=== PATIENT | male | born 1945 | race Caucasian/White ===

== ENCOUNTER → 2018-09-30 | Outpatient (CLI) | payer MEDICARE ==
--- NOTE | 2018-09-30 15:55 | US ---
EXAMINATION TYPE: US kidneys/renal and bladder DATE OF EXAM: 09/30/2018 COMPARISON: NONE CLINICAL HISTORY: N28.89 other diseases of kidney ureters. Pt states MRI done at outside facility s howing renal lesions bilaterally EXAM MEASUREMENTS: Right Kidney: 11.8 x 5.4 x 4.8 cm Left Kidney: 9.8 x 5.3 x 5.5 cm Right Kidney: Multicystic with largest cyst measured lower pole= 3.7 x 2.8 x 3.8 cm Left Kidney: Multicystic with largest cyst measured at lower pole= 5.0 x 3.1 x 4.6 cm Bladder: wnl Bilateral Jets seen: Only left jet visualized Incidental finding of "bulging" to distal aorta with soft plaque= 2.8 cm There is no evidence for hydronephrosis at this point in time. No nephrolithiasis is seen. . The u rinary bladder is greatly distended. Bilateral ureteral jets are not seen. IMPRESSION: Multiple thin-walled cysts are scattered throughout both kidneys presumed to correlate to outside MRI abnormality. Ectasia of the abdominal aorta without greater than 3.0 cm aneurysmal decker e
== END | disposition home or self-care (01) ==
LOC: RADUSWWP 15:27
PROVIDERS: ATTEND Family Medicine
DX: N28.1 Cyst of kidney, acquired (principal); I71.4 Abdominal aortic aneurysm, without rupture
CPT/HCPCS: 76770

== ENCOUNTER 2018-11-24 05:12 | Inpatient (IN) | payer MEDICARE ==
[2018-11-24 05:35] LABS: HCT 37.7 % (39.0-53.0); HGB 12.6 gm/dL (13.0-17.5); MCH 32.6 pg (25.0-35.0); MCHC 33.4 g/dL (31.0-37.0); MCV 97.6 fL (80.0-100.0); Platelet Count 393 k/uL (150-450); RBC 3.87 m/uL (4.30-5.90); RDW 14.2 % (11.5-15.5); WBC 24.1 k/uL (3.8-10.6)
[2018-11-24] MEDS ORDERED: SODIUM CHLORIDE 0.9% 500 ML 500 ML IV STA ×3 (05:39→07:19)
[2018-11-24 05:45] LABS: INR 0.9 (<1.2); Partial Thromboplastin Time 24.3 sec (22.0-30.0); Prothrombin Time 9.7 sec (9.0-12.0)
--- NOTE | 2018-11-24 05:48 | ED ---
Back Pain HPI - General Source: patient, family, EMS Limitations: physical limitation - History of Present Illness MD Complaint: back pain, other -: days(s) Similar Symptoms Previously: No Place: home Radiation: left leg, right leg Severity: severe Quality: burning Consistency: constant Improves With: none Worsens With: none Associated Symptoms: denies other symptoms (This patient is a 73-year-old man wh o presents with complaint of back and bilateral foot pain. The patient states that he had a discectomy and replacement approximately 2 weeks ago at [facility] with Dr. Rubio. he states that he was doing well at approximately 3 days after the surgery stopped using the pain medication.) <Adonis Ward - Last Filed: 11/24/18 05:48> <Mic Corley - Last Filed: 11/24/18 11:54> - General Chief Complaint: Back Pain/Injury Stated Complaint: back pain Time Seen by Provider: 11/24/18 05:21 - History of Present Illness Initial Comments: This patient is a 73-year-old man who presents with complaint of back and bilateral foot pain. The patient states that he had a discectomy and replacement approximately 2 weeks ago at [facility] with Dr. Rubio. he states that he was doing well at approximately 3 days after the surgery stopped using the pain medication. About 4 days ago the patient noticed that he was having some burning bilateral foot pain. He states the worse after he was up and walking. It would improve after he was sitting and resting. He also had a little bit of low back pain. The patient states that he saw his primary physician who had some lab tests sent. He then received a call that he should be seen in the emergency department as his white blood count was high. The patient is denying fever or chills. No cough or dyspnea. No nausea, vomiting, or diarrhea. Denies change in urination. (Adonis Ward) Review of Systems ROS Other: All systems not noted in ROS Statement are negative. Constitutional: Reports: weakness ENT: Denies: throat pain Respiratory: Denies: cough, dyspnea Cardiovascular: Reports: edema. Denies: chest pain, palpitations, syncope Gastrointestinal: Denies: abdominal pain, nausea, vomiting, diarrhea Genitourinary: Denies: dysuria, hematuria Musculoskeletal: Reports: as per HPI, back pain Skin: Denies: rash, lesions Neurological: Denies: headache, weakness, numbness <Adonis Ward - Last Filed: 11/24/18 05:48> ROS Other: All systems not noted in ROS Statement are negative. <Mic Corley - Last Filed: 11/24/18 11:54> ROS Statement: Those systems with pertinent positive or pertinent negative responses have been documented in the HPI. Past Medical History Past Medical History: Asthma, Hyperlipidemia, Hypertension Additional Past Medical History / Comment(s): aortic aneurysm, back problems, cyst on kidney History of Any Multi-Drug Resistant Organisms: None Reported Past Surgical History: Back Surgery, Cholecystectomy, Orthopedic Surgery, Tonsillectomy Past Psychological History: No Psychological Hx Reported Smoking Status: Current every day smoker Past Alcohol Use History: Rare Past Drug Use History: None Reported <Adonis Ward - Last Filed: 11/24/18 05:48> General Exam Limitations: physical limitation General appearance: alert, in no apparent distress Head exam: Present: atraumatic, normocephalic Eye exam: Present: normal appearance. Absent: scleral icterus, conjunctival injection ENT exam: Present: mucous membranes dry Neck exam: Present: normal inspection, full ROM. Absent: tenderness Respiratory exam: Present: normal lung sounds bilaterally. Absent: respiratory distress, wheezes, rales, rhonchi, stridor Cardiovascular Exam: Present: normal rhythm, tachycardia (Rate approximately 112 bpm), normal heart sounds. Absent: systolic murmur, diastolic murmur, rubs, gallop GI/Abdominal exam: Present: soft. Absent: distended, tenderness, guarding, rebound, rigid, mass, pulsatile mass, hernia Extremities exam: Present: normal inspection, normal capillary refill, pedal edema (There is bilateral pitting edema to above the ankles). Absent: calf tenderness Back exam: Present: normal inspection, other (Patient's post surgical incisions have a normal appearance. The justo are intact. There is no abnormal erythema, warmth, or any drainage. No tenderness.). Absent: CVA tenderness (R), CVA tenderness (L), vertebral tenderness Neurological exam: Present: alert, oriented X3. Absent: motor sensory deficit Skin exam: Present: warm, dry, intact, normal color. Absent: rash <Adonis Ward - Last Filed: 11/24/18 05:48> Course <BarbaraAdonis byrne - Last Filed: 11/24/18 05:48> Vital Signs 11/24/18 11/24/18 11/24/18 05:14 07:22 08:33 Temperature 97.7 F Pulse Rate 111 H 107 H Respiratory 24 22 Rate Blood Pressure 77/46 84/49 82/40 O2 Sat by Pulse 93 L 94 L Oximetry 11/24/18 11/24/18 11/24/18 10:10 10:43 11:22 Temperature Pulse Rate 101 H 103 H 106 H Respiratory 18 18 16 Rate Blood Pressure 87/47 79/39 80/42 O2 Sat by Pulse 96 97 95 Oximetry 11/24/18 11:32 Temperature Pulse Rate 103 H Respiratory 16 Rate Blood Pressure 86/46 O2 Sat by Pulse 95 Oximetry - Reevaluation(s) Reevaluation #1: 11/24/18 05:40 Fluid bolus based on her ideal body weight. (Adonis Ward) Medical Decision Making - Lab Data Result diagrams: 11/24/18 05:25 - EKG Data -: EKG Interpreted by Co EKG shows normal: sinus rhythm, axis (Normal), intervals (Normal), QRS complexes (Normal), ST-T waves (Normal) Rate: tachycardia (Rate 109 bpm) <EdAdonis - Last Filed: 11/24/18 05:48> - Lab Data Result diagrams: 11/24/18 05:25 11/24/18 05:25 <Mic Corley - Last Filed: 11/24/18 11:54> - Medical Decision Making CT of the back showed no fluid collection. Nothing on CAT scan showed anything that would explain the patient's symptoms. CAT scan did show possible thickening of the colon on the right on the back x-ray however when I reexamined the patient he had no tenderness or complaints of abdominal pain. Chest x-ray showed no acute abnormality. Bilateral ultrasound showed no DVT. Because the patient's low blood pressure was considering Sending the Patient to the ICU but Doctor Carolyn Came down and Saw the Patient and Decided the Patient Could Go to the Floor. I wrote admitting orders (Mic Corley) - Lab Data Lab Results 11/24/18 11/24/18 11/24/18 Range/Units 05:25 05:25 05:25 WBC 24.1 H (3.8-10.6) k/uL RBC 3.87 L (4.30-5.90) m/uL Hgb 12.6 L (13.0-17.5) gm/dL Hct 37.7 L (39.0-53.0) % MCV 97.6 (80.0-100.0) fL MCH 32.6 (25.0-35.0) pg MCHC 33.4 (31.0-37.0) g/dL RDW 14.2 (11.5-15.5) % Plt Count 393 (150-450) k/uL Neutrophils % (Manual) 71 % Band Neutrophils % 10 % Lymphocytes % (Manual) 10 % Monocytes % (Manual) 8 % Eosinophils % (Manual) 1 % Myelocytes % 1 % Neutrophils # (Manual) 19.50 H (1.3-7.7) k/uL Lymphocytes # (Manual) 2.41 (1.0-4.8) k/uL Monocytes # (Manual) 1.93 H (0-1.0) k/uL Eosinophils # (Manual) 0.24 (0-0.7) k/uL Myelocytes # (Manual) 0.24 H (0) k/uL Nucleated RBCs 0 (0-0) /100 WBC Manual Slide Review Performed PT (9.0-12.0) sec INR (<1.2) APTT (22.0-30.0) sec Sodium 126 L (137-145) mmol/L Potassium 3.8 (3.5-5.1) mmol/L Chloride 91 L (98-107) mmol/L Carbon Dioxide 22 (22-30) mmol/L Anion Gap 13 mmol/L BUN 66 H (9-20) mg/dL Creatinine 2.07 H (0.66-1.25) mg/dL Est GFR (CKD-EPI)AfAm 36 (>60 ml/min/1.73 sqM) Est GFR (CKD-EPI)NonAf 31 (>60 ml/min/1.73 sqM) Glucose 141 H (74-99) mg/dL Plasma Lactic Acid Felipe 1.7 (0.7-2.0) mmol/L Calcium 8.1 L (8.4-10.2) mg/dL Total Bilirubin 0.4 (0.2-1.3) mg/dL AST 19 (17-59) U/L ALT 24 (21-72) U/L Alkaline Phosphatase 101 (38-126) U/L Troponin I (0.000-0.034) ng/mL Total Protein 5.1 L (6.3-8.2) g/dL Albumin 2.5 L (3.5-5.0) g/dL Urine Color Urine Appearance (Clear) Urine pH (5.0-8.0) Ur Specific [place] (1.001-1.035) Urine Protein (Negative) Urine Glucose (UA) (Negative) Urine Ketones (Negative) Urine Blood (Negative) Urine Nitrite (Negative) Urine Bilirubin (Negative) Urine Urobilinogen (<2.0) mg/dL Ur Leukocyte Esterase (Negative) Urine RBC (0-5) /hpf Urine WBC (0-5) /hpf Hyaline Casts (0-2) /lpf Granular Casts (0) /lpf 11/24/18 11/24/18 11/24/18 Range/Units 05:25 05:25 07:15 WBC (3.8-10.6) k/uL RBC (4.30-5.90) m/uL Hgb (13.0-17.5) gm/dL Hct (39.0-53.0) % MCV (80.0-100.0) fL MCH (25.0-35.0) pg MCHC (31.0-37.0) g/dL RDW (11.5-15.5) % Plt Count (150-450) k/uL Neutrophils % (Manual) % Band Neutrophils % % Lymphocytes % (Manual) % Monocytes % (Manual) % Eosinophils % (Manual) % Myelocytes % % Neutrophils # (Manual) (1.3-7.7) k/uL Lymphocytes # (Manual) (1.0-4.8) k/uL Monocytes # (Manual) (0-1.0) k/uL Eosinophils # (Manual) (0-0.7) k/uL Myelocytes # (Manual) (0) k/uL Nucleated RBCs (0-0) /100 WBC Manual Slide Review PT 9.7 (9.0-12.0) sec INR 0.9 (<1.2) APTT 24.3 (22.0-30.0) sec Sodium (137-145) mmol/L Potassium (3.5-5.1) mmol/L Chloride (98-107) mmol/L Carbon Dioxide (22-30) mmol/L Anion Gap mmol/L BUN (9-20) mg/dL Creatinine (0.66-1.25) mg/dL Est GFR (CKD-EPI)AfAm (>60 ml/min/1.73 sqM) Est GFR (CKD-EPI)NonAf (>60 ml/min/1.73 sqM) Glucose (74-99) mg/dL Plasma Lactic Acid Felipe (0.7-2.0) mmol/L Calcium (8.4-10.2) mg/dL Total Bilirubin (0.2-1.3) mg/dL AST (17-59) U/L ALT (21-72) U/L Alkaline Phosphatase (38-126) U/L Troponin I 0.013 (0.000-0.034) ng/mL Total Protein (6.3-8.2) g/dL Albumin (3.5-5.0) g/dL Urine Color Yellow Urine Appearance Cloudy (Clear) Urine pH 5.0 (5.0-8.0) Ur Specific [place] 1.021 (1.001-1.035) Urine Protein 1+ H (Negative) Urine Glucose (UA) Negative (Negative) Urine Ketones Negative (Negative) Urine Blood Negative (Negative) Urine Nitrite Negative (Negative) Urine Bilirubin Negative (Negative) Urine Urobilinogen 2.0 (<2.0) mg/dL Ur Leukocyte Esterase Negative (Negative) Urine RBC 1 (0-5) /hpf Urine WBC 4 (0-5) /hpf Hyaline Casts 15 H (0-2) /lpf Granular Casts 8 (0) /lpf Disposition <Adonis Ward - Last Filed: 11/24/18 05:48> Is patient prescribed a controlled substance at d/c from ED?: No Time of Disposition: 11:54 <Mic Corley - Last Filed: 11/24/18 11:54> Clinical Impression: Renal insufficiency, Leukocytosis, Hypotension, Hyponatremia Disposition: ADMITTED IP TO THIS HOSP Referrals: Leeann Varma III, MD [Primary Care Provider] - 1-2 days
[2018-11-24 05:51] LABS: Albumin 2.5 g/dL (3.5-5.0); Calcium 8.1 mg/dL (8.4-10.2); Potassium 3.8 mmol/L (3.5-5.1); Total Bilirubin 0.4 mg/dL (0.2-1.3); Total Protein 5.1 g/dL (6.3-8.2)
[2018-11-24] MEDS: SODIUM CHLORIDE 0.9% 500 ML 500 ML IV SCH ×2 (05:56→06:00)
[2018-11-24 06:02] LABS: Band Neutrophils % 10 %; Eosinophils # (M) 0.24 k/uL (0-0.7); Lymphocytes # (M) 2.41 k/uL (1.0-4.8); Monocytes # (M) 1.93 k/uL (0-1.0); Myelocytes # (M) 0.24 k/uL (0); Myelocytes % 1 %; Neutrophils % (M) 71 %; Nucleated Red Blood Cells 0 /100 WBC (0-0); Total Cells Counted 200
[2018-11-24 08:09] LABS: Appearance,Urine Cloudy (Clear); Bilirubin,Urine Negative (Negative); Blood,Urine Negative (Negative); Color,Urine Yellow; Glucose,Urine (UA) Negative (Negative); Granular Casts,Urine 8 /lpf (0); Hyaline Casts,Urine 15 /lpf (0-2); Ketones,Urine Negative (Negative); Leukocyte Esterase,Urine Negative (Negative); Nitrite,Urine Negative (Negative); Protein,Urine 1+ (Negative); RBC,Urine 1 /hpf (0-5); Specific Gravity,Urine 1.021 (1.001-1.035); WBC,Urine 4 /hpf (0-5)
--- NOTE | 2018-11-24 08:30 | US ---
EXAMINATION TYPE: US venous doppler duplex LE DATE OF EXAM: 11/24/2018 8:15 AM COMPARISON: NONE CLINICAL HISTORY: pain, R/O DVT. Bilateral leg swelling SIDE PERFORMED: Bilateral TECHNIQUE: The lower extremity deep venous system is examined utilizing real time linear array sonog royer with graded compression, doppler sonography and color-flow sonography. VESSELS IMAGED: External Iliac Vein (EIV) Common Femoral Vein Deep Femoral Vein Greater Saphenous Vein * Femoral Vein Popliteal Vein Small Saphenous Vein * Proximal Calf Veins (* superficial vessels) Grayscale, color doppler, spectral doppler imaging performed of the deep veins of the lower extremiti es. There is normal flow, compressibility, vascular waveforms. Right Leg: Appears negative for DVT Left Leg: Appears negative for DVT IMPRESSION: No sonographic evidence of deep venous thrombosis within the bilateral lower extremities .
--- NOTE | 2018-11-24 08:48 | XR ---
EXAMINATION TYPE: XR chest 2V DATE OF EXAM: 11/24/2018 COMPARISON: NONE HISTORY: Recent back surgery, possible sepsis, lower extremity swelling. TECHNIQUE: Frontal and lateral views of the chest are obtained. FINDINGS: There is no focal air space opacity, pleural effusion, or pneumothorax seen. Biapical luce ncy and slight flattening of the diaphragms on the lateral view suggests underlying COPD. The cardiac silhouette size is within normal limits. The osseous structures are intact. Mild multilevel degene rative disc disease of the thoracic spine is seen. Diffuse osseous demineralization is noted. IMPRESSION: No acute cardiopulmonary process.
--- NOTE | 2018-11-24 09:03 | CT ---
EXAMINATION TYPE: CT lumbar spine wo con DATE OF EXAM: 11/24/2018 COMPARISON: None HISTORY: 73-year-old male low back pain, recent back surgery TECHNIQUE: Contiguous axial scanning of the lumbar spine without IV contrast. Coronal and sagittal re constructions performed. CT DLP: 1439 mGycm Automated exposure control for dose reduction was used. FINDINGS: Cholecystectomy clips. There seems to be markedly dilated right-sided colon filled with fluid and wit h wall thickening. Multiple hypodense lesions within the kidneys are indeterminate but probably represent cysts. 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 Ectatic infrarenal abdominal aorta at 2.9 cm with moderate atherosclerotic change. Degenerative anterior bridging ankylosis at the right SI joint. Mild multilevel degenerative disc disease with more moderate disc height loss at the fused L5-S1 leve l. Interbody devices present at L4-L5. Facet arthropathy lower lumbar spine. There is posterior lumba r fusion from L4 through S1 levels. Vertebral body heights are preserved and alignment is maintained. There is moderate bony neuroforaminal narrowing at L5-S1, left greater than right. IMPRESSION: 1. STATUS POST L4-S1 POSTERIOR FUSION AND L4-L5 INTERBODY FUSION. MILD MULTILEVEL DEGENERATIVE DISC D ISEASE. 2. MODERATE BONY NEUROFORAMINAL NARROWING ON BOTH SIDES AT L5-S1. 3. PARTIALLY VISUALIZED MARKEDLY DILATED RIGHT-SIDED COLON WITH WALL THICKENING AND FLUID DISTENTION. CORRELATE FOR POSSIBLE ETIOLOGIES SUCH COLITIS, VOLVULUS, COLONIC OBSTRUCTION, ETC. 4. NO VERTEBRAL COMPRESSION COLLAPSE OR MALALIGNMENT.
[2018-11-24] MEDS ORDERED: HYDROCORTISONE SUCCINATE 100 MG/2 ML VIAL IV STA (10:38)
[2018-11-24] MEDS ORDERED: SODIUM CHLORIDE 0.9% 1,000 ML IV ONE (11:54)
[2018-11-24] MEDS ORDERED: FAMOTIDINE 20 MG TAB PO PRN (12:43)
[2018-11-24] MEDS ORDERED: ALPRAZolam 0.5 MG TAB PO PRN (12:43)
[2018-11-24] MEDS ORDERED: CYCLOBENZAPRINE 10 MG TAB PO PRN (12:43)
[2018-11-24] MEDS ORDERED: BENZONATATE 100 MG CAP PO PRN (12:43)
[2018-11-24] MEDS ORDERED: SENNOSIDES-DOCUSATE SODIUM 1 EACH TAB PO PRN (12:43)
[2018-11-24] MEDS ORDERED: IPRATROPIUM 0.5 MG/2.5 ML NEBU INHALATION PRN (12:43)
--- NOTE | 2018-11-24 12:52 | P.HPIM ---
History of Present Illness Patient is a pleasant 73-year-old male had a recent back surgery about a week ago came in with complaints of bilateral pedal edema. Patient back pain is significantly better is only taking Tylenol as needed basis for pain. Patient denied any fever chills patient denied dysuria nausea vomiting cough. Patient does have highly elevated white blood cell count of 24,000. Patient did have lactic acid elevation hypotensive along with severe hyponatremia and renal dysfunction with creatinine of around 2.07, baseline creatinine is not available at this time. Patient had a lumbar spine CAT scan which did not show any abscess or any infection patient clinically doesn't have any redness in the surgical site area surgical site area is clean. He is not significantly abnormal, patient denied any abdominal pain but does appear to be constipated and CT was read as possibly of colitis although clinically does not have any tenderness at this time. Patient doesn't have any fever actually wanted to go home. Patient doesn't have any clinical scars signs of congestive heart failure denied any shortness of breath orthopnea paroxysmal nocturnal dyspnea patient doesn't have any elevated JVD. We'll obtain a BNP level, echocardiogram and also venous Doppler of bilateral lower extremities. Review of Systems REVIEW OF SYSTEMS: CONSTITUTIONAL: No fever, no malaise, no fatigue. HEENT: No recent visual problems or hearing problems. Denied any sore throat. CARDIOVASCULAR: No chest pain, orthopnea, PND, no palpitations, no syncope. PULMONARY: No shortness of breath, no cough, no hemoptysis. GASTROINTESTINAL: No diarrhea, no nausea, no vomiting, no abdominal pain. NEUROLOGICAL: No headaches, no weakness, no numbness. HEMATOLOGICAL: Denies any bleeding or petechiae. GENITOURINARY: Denies any burning micturition, frequency, or urgency. MUSCULOSKELETAL/RHEUMATOLOGICAL: Denies any joint pain, swelling, or any muscle pain. ENDOCRINE: Denies any polyuria or polydipsia. The rest of the 14-point review of systems is negative. 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 History of Any Multi-Drug Resistant Organisms: None Reported Past Surgical History: Appendectomy, Back Surgery, Cholecystectomy, Tonsillectomy Additional Past Surgical History / Comment(s): 11/16/18 low back surgery-discectomy/replaced vertebra/spacer and fusion with rodding at [facility], colonoscopy with benign polyp. Past Anesthesia/Blood Transfusion Reactions: No Reported Reaction Past Psychological History: No Psychological Hx Reported Additional Psychological History / Comment(s): Pt resides with his spouse. He is using a cane or walker to ambulate. He has a nebulizer. He has not been able to drive recently d/t recent back surgery, his spouse drives. Smoking Status: Current every day smoker Past Alcohol Use History: Rare Additional Past Alcohol Use History / Comment(s): Pt started smoking in 1958 and smokes 34-1 ppd. Past Drug Use History: None Reported - Past Family History Father Family Medical History: Cancer Additional Family Medical History / Comment(s): Father of CCL at the age of 87yrs. Mother Family Medical History: Cancer, Myocardial Infarction ([place]) Additional Family Medical History / Comment(s): Mother had cervical cancer. She of a [place] at the age of 64yrs. Medications and Allergies Home Medications Medication Instructions Recorded Confirmed Type ALPRAZolam [Xanax] 0.5 mg PO Q8H PRN 11/24/18 11/24/18 History Albuterol Inhaler [Ventolin Hfa 1 - 2 puff INHALATION RT-Q4H PRN 11/24/18 11/24/18 History Inhaler] Albuterol Nebulized [Ventolin 2.5 mg INHALATION RT-Q6H PRN 11/24/18 11/24/18 History Nebulized] Benzonatate [Tessalon Perles] 200 mg PO TID PRN 11/24/18 11/24/18 History Cyclobenzaprine [Flexeril] 10 mg PO TID PRN 11/24/18 11/24/18 History Famotidine [Pepcid] 20 mg PO DAILY PRN 11/24/18 11/24/18 History Fluticasone Nasal [place] [Flonase 1 spray EA NOSTRIL BID 11/24/18 11/24/18 Hi story Nasal [place]] Hydrochlorothiazide [Hydrodiuril] 25 mg PO DAILY 11/24/18 11/24/18 History Ipratropium Nebulized [Atrovent 0.5 mg INHALATION RT-Q6H PRN 11/24/18 11/24/18 History Nebulized 0.2 MG/ML] Lisinopril [Zestril] 10 mg PO DAILY 11/24/18 11/24/18 History Loratadine [Claritin] 10 mg PO DAILY 11/24/18 11/24/18 History Sennosides/Docusate Sodium 2 tab PO HS PRN 11/24/18 11/24/18 History [Senna-S Laxative Tablet] Simvastatin [Zocor] 20 mg PO HS 11/24/18 11/24/18 History oxyCODONE HCL [OxyIR] 5 mg PO Q6H PRN 11/24/18 11/24/18 History Allergies Allergy/AdvReac Type Severity Reaction Status Date / Time No Known Allergies Allergy Verified 11/24/18 08:28 Physical Exam Vitals: Vital Signs Temp Pulse Resp BP Pulse Ox 11/24/18 12:40 101 H 16 87/53 95 11/24/18 12:12 102 H 16 102/48 95 11/24/18 11:58 103 H 16 89/49 95 11/24/18 11:32 103 H 16 86/46 95 11/24/18 11:22 106 H 16 80/42 95 11/24/18 10:43 103 H 18 79/39 97 11/24/18 10:10 101 H 18 87/47 96 11/24/18 08:33 82/40 11/24/18 07:22 107 H 22 84/49 94 L 11/24/18 05:14 97.7 F 111 H 24 77/46 93 L Intake and Output 11/23/18 11/24/18 11/24/18 22:59 06:59 14:59 Output Total 50 Balance -50 Output: Urine 50 Straight 50 Other: Weight 77.564 kg PHYSICAL EXAMINATION: GENERAL: The patient is alert and oriented x3, not in any acute distress. Well developed, well nourished. HEENT: Pupils are round and equally reacting to light. EOMI. No scleral icterus. No conjunctival pallor. Normocephalic, atraumatic. No pharyngeal erythema. No thyromegaly. CARDIOVASCULAR: S1 and S2 present. No murmurs, rubs, or gallops. PULMONARY: Chest is clear to auscultation, no wheezing or crackles. ABDOMEN: Soft, nontender, nondistended, normoactive bowel sounds. No palpable organomegaly. MUSCULOSKELETAL: No joint swelling or deformity. EXTREMITIES: No cyanosis, clubbing, or pedal edema. NEUROLOGICAL: Gross neurological examination did not reveal any focal deficits. SKIN: No rashes. Results CBC & Chem 7: 11/24/18 05:25 11/24/18 05:25 Labs: Abnormal Lab Results - Last 24 Hours (Table) 11/24/18 11/24/18 11/24/18 Range/Units 05:25 05:25 07:15 WBC 24.1 H (3.8-10.6) k/uL RBC 3.87 L (4.30-5.90) m/uL Hgb 12.6 L (13.0-17.5) gm/dL Hct 37.7 L (39.0-53.0) % Neutrophils # (Manual) 19.50 H (1.3-7.7) k/uL Monocytes # (Manual) 1.93 H (0-1.0) k/uL Myelocytes # (Manual) 0.24 H (0) k/uL Sodium 126 L (137-145) mmol/L Chloride 91 L (98-107) mmol/L BUN 66 H (9-20) mg/dL Creatinine 2.07 H (0.66-1.25) mg/dL Glucose 141 H (74-99) mg/dL Calcium 8.1 L (8.4-10.2) mg/dL Total Protein 5.1 L (6.3-8.2) g/dL Albumin 2.5 L (3.5-5.0) g/dL Urine Protein 1+ H (Negative) Hyaline Casts 15 H (0-2) /lpf Thrombosis Risk Factor Assmnt - Choose All That Apply Any of the Below Risk Factors Present?: Yes Each Factor Represents 1 point: History of prior major surgery (<1month), Obesity (BMI >25), Swollen legs (current) Other Risk Factors: Yes Each Risk Factor Represents 2 Points: Age 61-74 years Other congenital or acquired thrombophilia - If yes, enter type in comment: No Thrombosis Risk Factor Assessment Total Risk Factor Score: 5 Thrombosis Risk Factor Assessment Level: High Risk Assessment and Plan Plan: -Bilateral pedal edema: May be related to chronic venous insufficiency although will rule out DVT with venous Doppler of her lower extremities my suspicion is low clinically. Low suspicion for congestive heart failure exacerbation. Clinically patient doesn't have CHF. Echocardiogram will be obtained -Leukocytosis appears to be reactive from surgery no obvious infection at this time I'll not continue antibiotics although patient IV fluids will be continued. -Hyponatremia appears to be hypovolemic hyponatremia we'll do hyponatremia workup with TSH, serum and urine osmolality, urine random sodium urine random creatinine. -Acute renal failure: Possibly secondary to severe intravascular depletion along with hydrochlorothiazide and lisinopril contributing to that both of these medications will be held -Hypotension secondary to hydrochlorothiazide, intravascular depletion and lisinopril -Lactic acidosis secondary to dehydration and intravascular depletion rather than infection patient will be continued on IV fluids and antibiotics will be continued at this time. [place]-hypertension patient is presently hypotensive all antidepressive medications will be held -Gastroesophageal reflux disease -Asthma without any acute exacerbation -Nicotine abuse: Counseling was provided
[2018-11-24 14:10] VITALS: BMI 27.6
--- NOTE | 2018-11-24 15:30 | US ---
EXAMINATION TYPE: US kidneys/renal and bladder DATE OF EXAM: 11/24/2018 COMPARISON: US 2019 CLINICAL HISTORY: bria. BRIA, history of renal cysts EXAM MEASUREMENTS: Right Kidney: 11.0 x 5.5 x 5.0 cm Left Kidney: 10.8 x 6.1 x 4.9 cm Right Kidney: multicystic with largest cyst inferior pole = 3.7 x 2.9 x 3.7cm Left Kidney: multicystic with largest cyst inferior pole = 4.2 x 4.0 x 4.2cm, 0.5cm echogenic focus m edial mid pole Bladder: not fully distended Bilateral Jets seen: no Small amount of free fluid RUQ There is no evidence for hydronephrosis at this point in time. No nephrolithiasis is seen on the rig ht. No suspicious masses are identified. The urinary bladder is anechoic. Bilateral ureteral jets are seen. IMPRESSION: 1. Nonobstructing left renal calculus measuring 5 mm. No hydronephrosis of either kidney. 2. Benign-appearing bilateral renal cysts with the largest on the right measuring 3.7 cm and the larg est on the left measuring 4.2 cm. 3. Incidentally noted trace amount of ascites in the right upper quadrant.
[2018-11-24] MEDS ORDERED: ACETAMINOPHEN TAB 325 MG TAB PO PRN (16:15)
[2018-11-24] MEDS: SODIUM CHLORIDE 0.9% 1,000 ML IV SCH ×2 (17:22→23:17)
[2018-11-24] MEDS: HEPARIN SODIUM,PORCINE 5,000 UNIT/ML 1 ML VIAL SQ SCH ×2 (17:22→23:17)
[2018-11-24 18:29] LABS: Creatinine,Urine Random 73.9 mg/dL
[2018-11-24] MEDS: ALBUTEROL NEBULIZED 2.5 MG/3 ML INHALATION PRN ×2 (18:52→23:40)
[2018-11-24] MEDS ORDERED: ATORVASTATIN 10 MG TAB PO SCH (21:00)
[2018-11-24] MEDS ORDERED: ONDANSETRON 4 MG TAB PO PRN (21:29)
[2018-11-24] MEDS: PANTOPRAZOLE 40 MG/10 ML VIAL IVP SCH (22:27)
[2018-11-24] MEDS: FLUTICASONE 50MCG/SPRAY NASAL 16GM EA NOSTRIL SCH (22:27)
[2018-11-25 06:57] LABS: HCT 35.9 % (39.0-53.0); HGB 12.1 gm/dL (13.0-17.5); MCH 33.1 pg (25.0-35.0); MCHC 33.7 g/dL (31.0-37.0); MCV 98.3 fL (80.0-100.0); Mean Platelet Volume 7.3; Platelet Count 357 k/uL (150-450); RBC 3.66 m/uL (4.30-5.90); RDW 13.2 % (11.5-15.5); WBC 29.6 k/uL (3.8-10.6)
[2018-11-25 07:08] LABS: Calcium 7.9 mg/dL (8.4-10.2); Potassium 3.5 mmol/L (3.5-5.1)
[2018-11-25] MEDS: ALBUTEROL NEBULIZED 2.5 MG/3 ML INHALATION PRN ×2 (07:17→10:58)
[2018-11-25] MEDS ORDERED: LORATADINE 10 MG TAB PO SCH (09:00)
[2018-11-25] MEDS: SODIUM CHLORIDE 0.9% 1,000 ML IV SCH (09:32)
[2018-11-25] MEDS: HEPARIN SODIUM,PORCINE 5,000 UNIT/ML 1 ML VIAL SQ SCH (09:32)
[2018-11-25] MEDS: FLUTICASONE 50MCG/SPRAY NASAL 16GM EA NOSTRIL SCH (09:32)
[2018-11-25] MEDS: PANTOPRAZOLE 40 MG/10 ML VIAL IVP SCH (09:33)
[2018-11-25] MEDS ORDERED: metroNIDAZOLE 500 MG TAB PO SCH (12:15)
[2018-11-25 12:25] VITALS: BP 106/50; PULSE 118; RESP 16; TEMP 96.8
--- NOTE | 2018-11-25 12:51 | P.DS ---
Providers Date of admission: 11/24/18 11:54 Expected date of discharge: 11/25/18 Attending physician: Letty Leon Consults: 11/25/18 08:40 Consult Physician Stat Consulting Provider: Lincoln Carballo Reason/Comments: leukocytosis Do you want consulting provider notified?: Yes Primary care physician: [facility] Course: Final diagnosis Bilateral pedal edema Leukocytosis which appears to be reactive from surgery Hyponatremia Acute renal failure: Possibly secondary to severe intravascular depletion Lactic acidosis secondary to dehydration and intravascular depletion Hypotension secondary to hydrochlorothiazide, lisinopril, intravascular depletion History of hypertension Gastroesophageal reflux disease Asthma without any acute exacerbation Nicotine abuse Discharge disposition Patient is being discharged in a stable condition with guarded prognosis to home and will follow-up with primary care provider as well as Dr. Carballo in the outpatient setting this week. Patient was given a specimen container to obtain a stool specimen to assess for C. diff. Patient was also given a short course of oral antibiotics in the form of Flagyl per infectious disease recommendations. Total time taken is 35 minutes. History of present illness This is a pleasant 73-year-old male who was recently admitted with complaints of bilateral pedal edema status post recent back surgery one week prior and is being closely monitored. During hospitalization patient was hypotensive and normally with a history of hypertension and at this time lisinopril and hydrochl orothiazide have been discontinued. Patient also had hyponatremia and renal dysfunction which has improved. Patient will need repeat labs in the outpatient setting in 2-3 days. Patient continue to have elevated WBCs and infectious disease was consulted. Patient denies any chest pain, shortness of breath, or palpitations at this time. Patient has been having some slightly elevated heart rates in the 110-120's and patient states that this is chronic for him. Patient denies any dizziness, lightheadedness. Patient is afebrile. Patient is adamant about going home today. Patient was prescribed a short course of oral antibiotics in the form of Flagyl and will follow-up with Dr. Carballo this week in the outpatient setting. Patient is to continue wearing compression hose for the bilateral pedal edema and elevate the legs while at rest. Currently patient's condition is stable and ready for discharge to home. Family is at the bedside. Guarded prognosis On exam vital signs are stable. Blood pressure is 106/50, pulse is 118, respirations are 16, temp is 96.8F, oxygen saturation is 93% on room air. Cardio S1 and S2 are muffled. Respiratory system shows clear upon auscultation with no wheezing noted. Abdomen is soft and nontender. Nervous system shows no focal deficits. Please refer to medication reconciliation sheet for a list of medications. Patient Condition at Discharge: Fair Plan - Discharge Summary Discharge Rx Participant: No New Discharge Prescriptions: New metroNIDAZOLE [Flagyl] 500 mg PO TID #21 tab Continue Cyclobenzaprine [Flexeril] 10 mg PO TID PRN PRN Reason: Muscle Spasm oxyCODONE HCL [OxyIR] 5 mg PO Q6H PRN PRN Reason: Pain Sennosides/Docusate Sodium [Senna-S Laxative Tablet] 2 tab PO HS PRN PRN Reason: Constipation Ipratropium Nebulized [Atrovent Nebulized 0.2 MG/ML] 0.5 mg INHALATION RT-Q6H PRN PRN Reason: Shortness Of Breath Albuterol Nebulized [Ventolin Nebulized] 2.5 mg INHALATION RT-Q6H PRN PRN Reason: Shortness Of Breath Famotidine [Pepcid] 20 mg PO DAILY PRN PRN Reason: GERD Benzonatate [Tessalon Perles] 200 mg PO TID PRN PRN Reason: Cough ALPRAZolam [Xanax] 0.5 mg PO Q8H PRN PRN Reason: Anxiety Fluticasone Nasal [place] [Flonase Nasal [place]] 1 spray EA NOSTRIL BID Loratadine [Claritin] 10 mg PO DAILY Albuterol Inhaler [Ventolin Hfa Inhaler] 1 - 2 puff INHALATION RT-Q4H PRN PRN Reason: Shortness Of Breath Simvastatin [Zocor] 20 mg PO HS Discontinued Hydrochlorothiazide [Hydrodiuril] 25 mg PO DAILY Lisinopril [Zestril] 10 mg PO DAILY Discharge Medication List ALPRAZolam [Xanax] 0.5 mg PO Q8H PRN 11/24/18 [History] Albuterol Inhaler [Ventolin Hfa Inhaler] 1 - 2 puff INHALATION RT-Q4H PRN 11/24/18 [History] Albuterol Nebulized [Ventolin Nebulized] 2.5 mg INHALATION RT-Q6H PRN 11/24/18 [History] Benzonatate [Tessalon Perles] 200 mg PO TID PRN 11/24/18 [History] Cyclobenzaprine [Flexeril] 10 mg PO TID PRN 11/24/18 [History] Famotidine [Pepcid] 20 mg PO DAILY PRN 11/24/18 [History] Fluticasone Nasal [place] [Flonase Nasal [place]] 1 spray EA NOSTRIL BID 11/24/18 [History] Ipratropium Nebulized [Atrovent Nebulized 0.2 MG/ML] 0.5 mg INHALATION RT-Q6H PRN 11/24/18 [History] Loratadine [Claritin] 10 mg PO DAILY 11/24/18 [History] Sennosides/Docusate Sodium [Senna-S Laxative Tablet] 2 tab PO HS PRN 11/24/18 [History] Simvastatin [Zocor] 20 mg PO HS 11/24/18 [History] oxyCODONE HCL [OxyIR] 5 mg PO Q6H PRN 11/24/18 [History] metroNIDAZOLE [Flagyl] 500 mg PO TID #21 tab 11/25/18 [Rx] Follow up Appointment(s)/Referral(s): Leeann Varma III, MD [Primary Care Provider] - 11/30/18 3:00 pm (With Radha DIAZ) Lincoln Carballo MD [STAFF PHYSICIAN] - Ambulatory/Diagnostic Orders: Basic Metabolic Panel [LAB.AMB] Location: None Selected Complete Blood Count w/diff [LAB.AMB] Location: None Selected Miscellaneous Lab Order [LAB.AMB] Location: None Selected Patient Instructions/Handouts: Dehydration (DC), Acute Diarrhea (ED), Hypotension (DC) Activity/Diet/Wound Care/Special Instructions: Activity Limited until follow-up Continue current diet Continue to hold lisinopril and hydrochlorothiazide until follow-up with primary care provider Continue antibiotics until complete Repeat labs in 2-3 days Patient instructed to obtain a stool sample and bring to primary care provider to assess for C. diff Continue to wear compression hose and have the legs elevated while at rest.
--- NOTE | 2018-11-25 12:54 | ECHOF ---
Referral Reason:r/o CHF MEASUREMENTS -------- HEIGHT: 165.1 cm WEIGHT: 77.6 kg BP: RVIDd: 2.9 cm (< 3.3) IVSd: 1.3 cm (0.6 - 1.1) LVIDd: 3.5 cm (3.9 - 5.3) LVPWd: 1.3 cm (0.6 - 1.1) IVSs: 1.5 cm LVIDs: 2.1 cm LVPWs: 1.6 cm LA Diam: 3.3 cm (2.7 - 3.8) Ao Diam: 3.5 cm (2.0 - 3.7) AV Cusp: 1.2 cm (1.5 - 2.6) LA Diam: 3.5 cm (2.7 - 3.8) MV EXCURSION: 28.026 mm (> 18.000) MV EF SLOPE: 108 mm/s (70 - 150) EPSS: 0.7 cm MV E [place]: 0.53 m/s MV DecT: 228 ms MV A [place]: 1.20 m/s MV E/A Ratio: 0.44 RAP: 5.00 mmHg RVSP: 30.24 mmHg FINDINGS -------- Sinus rhythm. This was a technically good study. The left ventricular size is normal. There is mild concentric left ventricular hypertrophy. Overa ll left ventricular systolic function is normal with, an EF between 55 - 60 %. The right ventricle is normal in size. The left atrial size is normal. The right atrial size is normal. The aortic valve is trileaflet, and appears structurally normal. No aortic stenosis or regurgitation. Mild mitral regurgitation is present. Mild tricuspid regurgitation present. There is no evidence of pulmonary hypertension. The right v entricular systolic pressure, as measured by Doppler, is 30.24mmHg. There is no pulmonic regurgitation present. The aortic root size is normal. There is no pericardial effusion. CONCLUSIONS -------- 1. Sinus rhythm. 2. This was a technically good study. 3. The left ventricular size is normal. 4. There is mild concentric left ventricular hypertrophy. 5. Overall left ventricular systolic function is normal with, an EF between 55 - 60 %. 6. The right ventricle is normal in size. 7. The left atrial size is normal. 8. The right atrial size is normal. 9. The aortic valve is trileaflet, and appears structurally normal. No aortic stenosis or regurgitati on. 10. Mild mitral regurgitation is present. 11. Mild tricuspid regurgitation present. 12. There is no evidence of pulmonary hypertension. 13. The right ventricular systolic pressure, as measured by Doppler, is 30.24mmHg. 14. There is no pulmonic regurgitation present. 15. The aortic root size is normal. 16. There is no pericardial effusion. [employer]: Juliann Ferrera RDCS
--- NOTE | 2018-11-25 15:24 | CDI ---
Documentation Clarification Form Date: 11/25/2018 3:14:41 PM From: Susy LentzTerrellGARRY chen, CCDS Admit Date: 11/24/2018 11:54:00 AM Patient Name: Roberto Dawson Visit Number: [id number] Discharge Date: 11/25/2018 1:51:00 PM ATTENTION: The Clinical Documentation Specialists (CDI) and [facility] Coding Staff appreciate your assistance in clarifying documentation. Please respond to the clarification below the line at the bottom and electronically sign. The CDI & [facility] Coding staff will review the response and follow-up if needed. Please note: Queries are made part of the Legal Health Record. If you have any questions, please contact the author of this message via ITS. Dr. Letty Leon: Asthma is documented in the History & Physical & also the Discharge Summary as "Asthma without any acute exacerbation." History/risk factors: Asthma, Hyperlipidemia, Hypertension, AAA, Cyst on Kidney, Chronic low back pain. Clinical Indicators: Presented with bilateral pedal edema, diagnosed with acute renal failure possibly secondary to HTcZ & Lisinopril & Hyponatremia. Radiology: CXR: Lateral view suggests underlying COPD. No acute cardiopulmonary process. Vital Signs: T 97.7, P 111^, R 24, BP 77/46*, PO 93 RA 2Lnc Treatment: IV Rocephin, IV SoluCortef, INH Ventolin neb, Heparin sq, Flonase nasal spray, IV Protonix, Claritin & O2 2Lnc. In your professional opinion, can you please further specify the following, if known? Documented as without exacerbation Please specify with or without COPD Severity of asthma: o Mild intermittent o Mild persistent o Moderate persistent o Severe persistent o Other, please specify ____ o Unable to determine Form or Type of Asthma: o Cough variant o Childhood o Exercise induced bronchospasm o Extrinsic allergic o Idiosyncratic o Intrinsic nonallergic o Late-onset o Mixed o Other, please specify____ o Unable to determine (Last Revision: June 2017) Unable to determine as we cannot determine this in inpatient setting MTDD
[2018-11-25] MEDS ORDERED: PANTOPRAZOLE 40 MG TABLET PO SCH (17:30)
--- NOTE | 2018-11-25 22:04 | P.CONS ---
History of Present Illness - Reason for Consult Consult date: 11/25/18 - Chief Complaint Lower extremity edema and pain - History of Present Illness 73 -year-old male presents to emergency center with increasing lower extremity edema and increasing pain, because of his recent back surgery was concerned and did present. Since admission he has had some diuresis and the swelling is improved in the pain has improved. However the patient has had an increasing amount of leukocytosis he went back consult was requested. The patient relates is feeling very well at this point in time. He is not having fever or chills. His back pain is under good control. Lower extremities have improved and he simply wants to go home. He distinctly denies any abdominal pain. Relates that he is eating well. He has no nausea or emesis. He has had some change in his bowel habit this going on for a little while. He relates since his back surgery bowel function has not been quite like normal. He's had significant soft stool he may even call it diarrhea he does not have constipation. No hematemesis or melena. Review of Systems HEENT:Denies headache or acute visual change. Denies sinus or mouth discomforts. Denies neck stiffness or pain. Denies significant oral cavity pain. Denies difficulty on swallowing. Lungs: Denies significant shortness of breath, cough, sputum production, or hemoptysis. Cardiovascular: Denies significant shortness of breath, chest pain, chest wall pain, orthopnea, dyspnea on exertion, syncope Gastrointestinal:Denies nausea, vomiting, As per HPI Musculoskeletal: Back pain improved. Skin: Denies new rash or lesions. No new ulcers or wounds are related.. Neuro: Denies headache or visual change. Denies any new onset weakness or difficulty with ambulation. Denies falls or seizures. Psychiatric:Denies anxiety or depression. Endocrine: Denies significant fatigue, denies significant weight loss or weight gain. 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 History of Any Multi-Drug Resistant Organisms: None Reported Past Surgical History: Appendectomy, Back Surgery, Cholecystectomy, Tonsillectomy Additional Past Surgical History / Comment(s): 11/16/18 low back surgery- discectomy/replaced vertebra/spacer and fusion with rodding at [facility], colonoscopy with benign polyp. Past Anesthesia/Blood Transfusion Reactions: No Reported Reaction Past Psychological History: No Psychological Hx Reported Additional Psychological History / Comment(s): Pt resides with his spouse. He is using a cane or walker to ambulate. He has a nebulizer. He has not been able to drive recently d/t recent back surgery, his spouse drives. Smoking Status: Current every day smoker Past Alcohol Use History: Rare Additional Past Alcohol Use History / Comment(s): Pt started smoking in 1958 and smokes 3/4-1 ppd. Past Drug Use History: None Reported - Past Family History Father Family Medical History: Cancer Additional Family Medical History / Comment(s): Father of CCL at the age of 87yrs. Mother Family Medical History: Cancer, Myocardial Infarction (MS) Additional Family Medical History / Comment(s): Mother had cervical cancer. She of a MS at the age of 64yrs. Medications and Allergies Home Medications and Allergies Comment(s): Please see the medication list Home Medications Medication Instructions Recorded Confirmed Type ALPRAZolam [Xanax] 0.5 mg PO Q8H PRN 11/24/18 11/24/18 History Albuterol Inhaler [Ventolin Hfa 1 - 2 puff INHALATION RT-Q4H PRN 11/24/18 11/24/18 History Inhaler] Albuterol Nebulized [Ventolin 2.5 mg INHALATION RT-Q6H PRN 11/24/18 11/24/18 History Nebulized] Benzonatate [Tessalon Perles] 200 mg PO TID PRN 11/24/18 11/24/18 History Cyclobenzaprine [Flexeril] 10 mg PO TID PRN 11/24/18 11/24/18 History Famotidine [Pepcid] 20 mg PO DAILY PRN 11/24/18 11/24/18 History Fluticasone Nasal [place] [Flonase 1 spray EA NOSTRIL BID 11/24/18 11/24/18 History Nasal [place]] Ipratropium Nebulized [Atrovent 0.5 mg INHALATION RT-Q6H PRN 11/24/18 11/24/18 History Nebulized 0.2 MG/ML] Loratadine [Claritin] 10 mg PO DAILY 11/24/18 11/24/18 History Sennosides/Docusate Sodium 2 tab PO HS PRN 11/24/18 11/24/18 History [Senna-S Laxative Tablet] Simvastatin [Zocor] 20 mg PO HS 11/24/18 11/24/18 History oxyCODONE HCL [OxyIR] 5 mg PO Q6H PRN 11/24/18 11/24/18 History metroNIDAZOLE [Flagyl] 500 mg PO TID #21 tab 11/25/18 Rx Allergies Allergy/AdvReac Type Severity Reaction Status Date / Time No Known Allergies Allergy Verified 11/24/18 08:28 Physical Exam Vitals: Vital Signs Temp Pulse Pulse Resp BP BP Pulse Ox 11/25/18 12:22 96.8 F L 118 H 16 106/50 93 L 11/25/18 11:09 104 H 11/25/18 10:59 100 11/25/18 09:31 98.1 F 114 H 20 99/47 94 L 11/25/18 09:24 120 H 11/25/18 09:00 120 H 11/25/18 08:09 97.1 F L 11/25/18 08:00 97.1 F L 114 H 20 98/54 11/25/18 07:30 100 11/25/18 07:17 100 11/25/18 03:15 98.0 F 107 H 16 115/53 100 11/24/18 23:53 100 11/24/18 23:40 100 11/24/18 23:05 98.3 F 101 H 16 106/51 96 Intake and Output 11/25/18 11/25/18 11/25/18 06:59 14:59 22:59 Output Total 500 Balance -500 Output: Urine 500 Other: Voiding Method Toilet Toilet Urinal Urinal # Voids 3 Weight 84 kg HEENT: Anicteric conjunctiva are pink and moist nasal mucosa grossly intact without significant lesions, there is no thrush. Neck: The neck is supple without significant lymphadenopathy or thyromegaly. Lungs: Good bilateral air entry without significant crackles or wheezing. There is no significant bronchial sounds. There is no egophony or dullness. Heart: Regular rate and rhythm with an audible S1-S2, no S3 no S4. There is no significant murmur click or rub, PMI was nondisplaced. Abdomen: Positive bowel sounds soft and nontender without palpable masses or organomegaly. There was no guarding or rebound. Extremities: The upper extremities have excellent pulses they are symmetric, no significant petechiae or telangiectasia. No splinter hemorrhages were noted. The lower extremities are free from significant edema. The peripheral pulses were 2+ and symmetric. Back has evidence of the recent surgical intervention no drainage is noted Neuro: Awake alert oriented to person place and time. There are no acute new gross focal sensory motor deficits. Results CBC & Chem 7: 11/25/18 06:46 11/25/18 06:46 Labs: Abnormal Lab Results - Last 24 Hours (Table) 11/25/18 11/25/18 Range/Units 06:46 06:46 WBC 29.6 H (3.8-10.6) k/uL RBC 3.66 L (4.30-5.90) m/uL Hgb 12.1 L (13.0-17.5) gm/dL Hct 35.9 L (39.0-53.0) % Sodium 132 L (137-145) mmol/L BUN 55 H (9-20) mg/dL Creatinine 1.47 H (0.66-1.25) mg/dL Glucose 121 H (74-99) mg/dL Calcium 7.9 L (8.4-10.2) mg/dL Microbiology - Last 24 Hours (Table) 11/24/18 05:25 Blood Culture - Preliminary Blood No Growth after 24 hours Laboratory Results WBC 29.6 k/uL (3.8-10.6) H 11/25/18 06:46 RBC 3.66 m/uL (4.30-5.90) L 11/25/18 06:46 Hgb 12.1 gm/dL (13.0-17.5) L 11/25/18 06:46 Hct 35.9 % (39.0-53.0) L 11/25/18 06:46 MCV 98.3 fL (80.0-100.0) 11/25/18 06:46 MCH 33.1 pg (25.0-35.0) 11/25/18 06:46 MCHC 33.7 g/dL (31.0-37.0) 11/25/18 06:46 RDW 13.2 % (11.5-15.5) 11/25/18 06:46 Plt Count 357 k/uL (150-450) 11/25/18 06:46 Neutrophils % (Manual) 71 % 11/24/18 05:25 Band Neutrophils % 10 % 11/24/18 05:25 Lymphocytes % (Manual) 10 % 11/24/18 05:25 Monocytes % (Manual) 8 % 11/24/18 05:25 Eosinophils % (Manual) 1 % 11/24/18 05:25 Myelocytes % 1 % 11/24/18 05:25 Neutrophils # (Manual) 19.50 k/uL (1.3-7.7) H 11/24/18 05:25 Lymphocytes # (Manual) 2.41 k/uL (1.0-4.8) 11/24/18 05:25 Monocytes # (Manual) 1.93 k/uL (0-1.0) H 11/24/18 05:25 Eosinophils # (Manual) 0.24 k/uL (0-0.7) 11/24/18 05:25 Myelocytes # (Manual) 0.24 k/uL (0) H 11/24/18 05:25 Nucleated RBCs 0 /100 WBC (0-0) 11/24/18 05:25 Manual Slide Review Performed 11/24/18 05:25 PT 9.7 sec (9.0-12.0) 11/24/18 05:25 INR 0.9 (<1.2) 11/24/18 05:25 APTT 24.3 sec (22.0-30.0) 11/24/18 05:25 Sodium 132 mmol/L (137-145) L 11/25/18 06:46 Potassium 3.5 mmol/L (3.5-5.1) 11/25/18 06:46 Chloride 99 mmol/L (98-107) 11/25/18 06:46 Carbon Dioxide 25 mmol/L (22-30) 11/25/18 06:46 Anion Gap 8 mmol/L 11/25/18 06:46 BUN 55 mg/dL (9-20) H 11/25/18 06:46 Creatinine 1.47 mg/dL (0.66-1.25) H 11/25/18 06:46 Est GFR (CKD-EPI)AfAm 54 (>60 ml/min/1.73 sqM) 11/25/18 06:46 Est GFR (CKD-EPI)NonAf 47 (>60 ml/min/1.73 sqM) 11/25/18 06:46 Glucose 121 mg/dL (74-99) H 11/25/18 06:46 Osmolality 281 mosm/kg (280-301) 11/24/18 05:25 Plasma Lactic Acid [place] 1.7 mmol/L (0.7-2.0) 11/24/18 05:25 Calcium 7.9 mg/dL (8.4-10.2) L 11/25/18 06:46 Total Bilirubin 0.4 mg/dL (0.2-1.3) 11/24/18 05:25 AST 19 U/L (17-59) 11/24/18 05:25 ALT 24 U/L (21-72) 11/24/18 05:25 Alkaline Phosphatase 101 U/L (38-126) 11/24/18 05:25 Troponin I 0.013 ng/mL (0.000-0.034) 11/24/18 05:25 NT-Pro-B Natriuret Pep 853 pg/mL 11/24/18 05:43 Total Protein 5.1 g/dL (6.3-8.2) L 11/24/18 05:25 Albumin 2.5 g/dL (3.5-5.0) L 11/24/18 05:25 TSH 2.580 mIU/L (0.465-4.680) 11/24/18 05:25 Urine Color Yellow 11/24/18 07:15 Urine Appearance Cloudy (Clear) 11/24/18 07:15 Urine pH 5.0 (5.0-8.0) 11/24/18 07:15 Ur Specific [place] 1.021 (1.001-1.035) 11/24/18 07:15 Urine Protein 1+ (Negative) H 11/24/18 07:15 Urine Glucose (UA) Negative (Negative) 11/24/18 07:15 Urine Ketones Negative (Negative) 11/24/18 07:15 Urine Blood Negative (Negative) 11/24/18 07:15 Urine Nitrite Negative (Negative) 11/24/18 07:15 Urine Bilirubin Negative (Negative) 11/24/18 07:15 Urine Urobilinogen 2.0 mg/dL (<2.0) 11/24/18 07:15 Ur Leukocyte Esterase Negative (Negative) 11/24/18 07:15 Urine RBC 1 /hpf (0-5) 11/24/18 07:15 Urine WBC 4 /hpf (0-5) 11/24/18 07:15 Hyaline Casts 15 /lpf (0-2) H 11/24/18 07:15 Granular Casts 8 /lpf (0) 11/24/18 07:15 Urine Eosinophils 0 % 11/24/18 16:20 Urine Osmolality 383 mosm/kg (50-1400) 11/24/18 16:20 Ur Random Creatinine 73.9 mg/dL 11/24/18 16:20 Ur Random Sodium 30 mmol/L 11/24/18 16:20 Microbiology 11/24/18 05:25 Blood Blood Culture - Preliminary No Growth after 24 hours Assessment and Plan (1) Leukocytosis Narrative/Plan: 73 -year-old male has a history of recent back surgery for his significant degenerative disease presents to hospital with difficulties with his bilateral lower extremity edema in some pain. Since coming to Hospital elevating his legs and having some diuresis they have definitely improved. He however is not content that diuresis helped his condition. He relates feeling considerably better like to go home. He does have a leukocytosis that has actually increased although he is without fever, or other significant localizing symptoms. Back without appears to be intact. Lower extremities have no cellulitis. He has no respiratory or urinary complaints. And does not have any abdominal pain. He has not been on steroid therapy. The computed tomography scan does show evidence of some difficulties with colitis to the right side, but on exam he is completely benign. At this time since he has had a ulceration of his bowel function with send stool for C. diff if it is of the appropriate looseness, he could have colitis other than C. diff and constantly metronidazole will be added orally with close follow-up with his primary care physician. He should have outpatient CBC performed shortly after discharge to ensure it is not increasing. Status: Acute Code(s): D72.829 - ELEVATED WHITE BLOOD CELL COUNT, UNSPECIFIED SNOMED Code(s): 180296805 (2) Abnormal abdominal CT scan Status: Acute Code(s): R93.5 - ABN FINDINGS ON DX IMAGING OF ABD REGIONS, INC RETROPERITON SNOMED Code(s): 70569295737822986
== END 2018-11-25 13:51 | disposition home or self-care (01) | DRG 683 ==
LOC: EC 05:12 → 3SCARD 11:54
PROVIDERS: ADMIT Internal Medicine; ATTEND Internal Medicine
DX: N17.9 Acute kidney failure, unspecified (principal); E87.1 Hypo-osmolality and hyponatremia; E87.2 Acidosis; E86.0 Dehydration; T50.2X5A Adverse effect of carbonic-anhydrase inhibitors, benzothiadiazides and other diuretics, initial encounter; E78.5 Hyperlipidemia, unspecified; Z71.6 Tobacco abuse counseling; F17.210 Nicotine dependence, cigarettes, uncomplicated; I10 Essential (primary) hypertension; J45.909 Unspecified asthma, uncomplicated; K21.9 Gastro-esophageal reflux disease without esophagitis; K52.9 Noninfective gastroenteritis and colitis, unspecified; K59.00 Constipation, unspecified; Z79.899 Other long term (current) drug therapy; Z82.49 Family history of ischemic heart disease and other diseases of the circulatory system; Z80.6 Family history of leukemia; Z80.49 Family history of malignant neoplasm of other genital organs; Z87.01 Personal history of pneumonia (recurrent); Z86.010 Personal history of colon polyps; I95.2 Hypotension due to drugs
CPT/HCPCS: 36415; 51701; 71046; 72131; 76770; 80048; 80053; 81001; 82570; 83605; 83880; 83930; 83935; 84300; 84443; 84484; 85025; 85027; 85610; 85730; 87040; 87205; 93005; 93306; 93970; 94640; 94760; 96361; 96365; 96375; 99285

== ENCOUNTER → 2018-11-26 | Outpatient (CLI) | payer MEDICARE ==
[2018-11-26 11:38] LABS: African American GFR (CKD) 63 (>60 ml/min/1.73 sqM); Anion Gap 10 mmol/L; Blood Urea Nitrogen 61 mg/dL (9-20); Calcium 7.7 mg/dL (8.4-10.2); Carbon Dioxide 23 mmol/L (22-30); Chloride 97 mmol/L (98-107); Glucose 104 mg/dL (74-99); Non-African American GFR(CKD) 55 (>60 ml/min/1.73 sqM); Sodium 130 mmol/L (137-145)
[2018-11-26 11:46] LABS: Potassium 3.8 mmol/L (3.5-5.1)
[2018-11-26 11:47] LABS: HCT 38.1 % (39.0-53.0); HGB 12.5 gm/dL (13.0-17.5); MCH 31.9 pg (25.0-35.0); MCHC 32.8 g/dL (31.0-37.0); MCV 97.2 fL (80.0-100.0); Platelet Count 394 k/uL (150-450); RBC 3.92 m/uL (4.30-5.90); RDW 13.4 % (11.5-15.5); WBC 38.6 k/uL (3.8-10.6)
[2018-11-26 12:13] LABS: Band Neutrophils % 21 %; Lymphocytes # (M) 0.39 k/uL (1.0-4.8); Metamyelocytes # (M) 0.39 k/uL (0); Metamyelocytes % 1 %; Monocytes # (M) 1.54 k/uL (0-1.0); Neutrophils % (M) 74 %; Nucleated Red Blood Cells 0 /100 WBC (0-0); Total Cells Counted 200
== END | disposition home or self-care (01) ==
LOC: LABWHC1 10:37
PROVIDERS: ATTEND Internal Medicine Infectious Disease
DX: K52.9 Noninfective gastroenteritis and colitis, unspecified (principal)
CPT/HCPCS: 36415; 80048; 85025

== ENCOUNTER 2018-11-30 16:25 | Inpatient (IN) | payer MEDICARE ==
[2018-11-30] MEDS ORDERED: MORPHINE SULFATE 4 MG/ML SYRINGE IV STA (17:04)
[2018-11-30] MEDS ORDERED: SODIUM CHLORIDE 0.9% 1,000 ML IV STA ×2 (17:04)
[2018-11-30] MEDS ORDERED: ONDANSETRON 4 MG/2 ML VIAL IVP STA (17:04)
--- NOTE | 2018-11-30 17:44 | ED ---
GI Bleed HPI - General Chief complaint: GI Bleed Stated complaint: Poss Gi bleed Time Seen by Provider: 11/30/18 16:48 Source: EMS, RN notes reviewed, old records reviewed Mode of arrival: EMS Limitations: no limitations - History of Present Illness Initial comments: This is a 73-year-old male the ER for evaluation resents today for evaluation regards to weakness. Patient is recent surgery postop lower back surgery with spacer fixation. Patient had a surgery at [facility] earlier this month. Patient states is been increasingly weak with increasing lower extremity edema as of late. He has having significant shortness of breath decreased appetite and inability to drink. Positive nausea no vomiting no chest pain no abdominal pain. Patient denies specific fevers. Occasional chills occasional sweating. MD complaint: blood streaked stool (Patient concern for blood in his stool) -: days(s) Radiation: none Severity scale (1-10): 7 (Weakness) Quality: painless Consistency: constant Improves with: none Worsens with: eating, bowel movement Context: other (Recent surgery) Associated Symptoms: nausea, loss of appetite, malaise, weakness Treatments Prior to Arrival: none - Related Data Home Medications Medication Instructions Recorded Confirmed ALPRAZolam [Xanax] 0.5 mg PO Q8H PRN 11/24/18 11/30/18 Albuterol Inhaler [Ventolin Hfa 1 - 2 puff INHALATION RT-Q4H PRN 11/24/18 11/30/18 Inhaler] Albuterol Nebulized [Ventolin 2.5 mg INHALATION RT-QID PRN 11/24/18 11/30/18 Nebulized] Benzonatate [Tessalon Perles] 200 mg PO TID PRN 11/24/18 11/30/18 Cyclobenzaprine [Flexeril] 10 mg PO TID PRN 11/24/18 11/30/18 Famotidine [Pepcid] 20 mg PO DAILY PRN 11/24/18 11/30/18 Fluticasone Nasal [place] [Flonase 1 spray EA NOSTRIL BID 11/24/18 11/30/18 Nasal [place]] Ipratropium Nebulized [Atrovent 0.5 mg INHALATION RT-QID PRN 11/24/18 11/30/18 Nebulized 0.2 MG/ML] Loratadine [Claritin] 10 mg PO HS 11/24/18 11/30/18 Sennosides/Docusate Sodium 2 tab PO HS PRN 11/24/18 11/30/18 [Senna-S Laxative Tablet] Simvastatin [Zocor] 20 mg PO HS 11/24/18 11/30/18 oxyCODONE HCL [OxyIR] 5 mg PO Q6H PRN 11/24/18 11/30/18 Previous Rx's Medication Instructions Recorded metroNIDAZOLE [Flagyl] 500 mg PO TID #21 tab 11/25/18 Allergies Allergy/AdvReac Type Severity Reaction Status Date / Time No Known Allergies Allergy Verified 11/30/18 17:05 Review of Systems ROS Statement: Those systems with pertinent positive or pertinent negative responses have been documented in the HPI. ROS Other: All systems not noted in ROS Statement are negative. 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 History of Any Multi-Drug Resistant Organisms: None Reported Past Surgical History: Appendectomy, Back Surgery, Cholecystectomy, Tonsillectomy Additional Past Surgical History / Comment(s): 11/16/18 low back surgery- discectomy/replaced vertebra/spacer and fusion with rodding at [facility], colonoscopy with benign polyp. Past Anesthesia/Blood Transfusion Reactions: No Reported Reaction Past Psychological History: No Psychological Hx Reported Smoking Status: Current every day smoker Past Alcohol Use History: Rare Past Drug Use History: None Reported - Past Family History Father Family Medical History: Cancer Additional Family Medical History / Comment(s): Father of CCL at the age of 87yrs. Mother Family Medical History: Cancer, Myocardial Infarction (DE) Additional Family Medical History / Comment(s): Mother had cervical cancer. She of a DE at the age of 64yrs. General Exam Limitations: no limitations General appearance: alert, in no apparent distress, anxious Head exam: Present: atraumatic, normocephalic, normal inspection Eye exam: Present: normal appearance, PERRL, EOMI. Absent: scleral icterus, conjunctival injection, periorbital swelling ENT exam: Present: normal exam, mucous membranes dry Neck exam: Present: normal inspection. Absent: tenderness, meningismus, lymphadenopathy Respiratory exam: Present: normal lung sounds bilaterally. Absent: respiratory distress, wheezes, rales, rhonchi, stridor Cardiovascular Exam: Present: normal rhythm, tachycardia, normal heart sounds. Absent: systolic murmur, diastolic murmur, rubs, gallop, clicks GI/Abdominal exam: Present: soft, normal bowel sounds. Absent: distended, tenderness, guarding, rebound, rigid Extremities exam: Present: normal inspection, full ROM, normal capillary refill. Absent: tenderness, pedal edema, joint swelling, calf tenderness Back exam: Present: normal inspection Neurological exam: Present: alert, oriented X3, CN II-XII intact Psychiatric exam: Present: normal affect, normal mood Skin exam: Present: warm, dry, intact, normal color. Absent: rash Course Vital Signs 11/30/18 11/30/18 11/30/18 16:34 16:44 17:00 Temperature 98.5 F Pulse Rate 105 H 109 H Respiratory 20 20 Rate Blood Pressure 102/43 102/43 O2 Sat by Pulse 52 L 95 96 Oximetry 11/30/18 11/30/18 11/30/18 17:30 18:00 19:00 Temperature Pulse Rate 101 H 103 H 102 H Respiratory 20 20 25 H Rate Blood Pressure 103/50 101/52 81/50 O2 Sat by Pulse 97 87 L 100 Oximetry - Reevaluation(s) Reevaluation #1: 11/30/18 17:43 Medical record is reviewed Reevaluation #2: 11/30/18 19:55 Patient with no improvement here in the ER asking for breathing treatments states is getting increasingly short of breath - Consultations Consultation #1: Spoke with Dr. Barnett who will accept admission Medical Decision Making - Medical Decision Making 70 female the ER for evaluation. Patient does say for evaluation of weakness significant metabolic abnormalities COPD exacerbation with breathing treatments and steroids. Patient was given rehydration - Lab Data Result diagrams: 11/30/18 17:50 11/30/18 17:50 Lab Results 11/30/18 11/30/18 11/30/18 Range/Units 17:50 17:50 17:50 WBC 20.2 H (3.8-10.6) k/uL RBC 4.33 (4.30-5.90) m/uL Hgb 14.0 (13.0-17.5) gm/dL Hct 43.9 (39.0-53.0) % MCV 101.5 H (80.0-100.0) fL MCH 32.4 (25.0-35.0) pg MCHC 31.9 (31.0-37.0) g/dL RDW 14.0 (11.5-15.5) % Plt Count 423 (150-450) k/uL Neutrophils % 89 % Lymphocytes % 4 % Monocytes % 4 % Eosinophils % 0 % Basophils % 1 % Neutrophils # 18.1 H (1.3-7.7) k/uL Lymphocytes # 0.8 L (1.0-4.8) k/uL Monocytes # 0.7 (0-1.0) k/uL Eosinophils # 0.0 (0-0.7) k/uL Basophils # 0.2 (0-0.2) k/uL Hypochromasia Moderate Macrocytosis Slight PT (9.0-12.0) sec INR (<1.2) APTT (22.0-30.0) sec VBG pH 7.39 (7.31-7.41) VBG pCO2 38 (37-51) mmHg VBG HCO3 22 L (24-28) mmol/L Sodium 130 L (137-145) mmol/L Potassium 4.4 (3.5-5.1) mmol/L Chloride 99 (98-107) mmol/L Carbon Dioxide 20 L (22-30) mmol/L Anion Gap 11 mmol/L BUN 88 H (9-20) mg/dL Creatinine 1.37 H (0.66-1.25) mg/dL Est GFR (CKD-EPI)AfAm 59 (>60 ml/min/1.73 sqM) Est GFR (CKD-EPI)NonAf 51 (>60 ml/min/1.73 sqM) Glucose 115 H (74-99) mg/dL Plasma Lactic Acid Felipe (0.7-2.0) mmol/L Calcium 7.5 L (8.4-10.2) mg/dL Phosphorus 4.2 (2.5-4.5) mg/dL Magnesium 3.1 H (1.6-2.3) mg/dL Total Bilirubin 0.7 (0.2-1.3) mg/dL AST 38 (17-59) U/L ALT 38 (21-72) U/L Alkaline Phosphatase 113 (38-126) U/L Creatine Kinase 23 L (55-170) U/L Troponin I (0.000-0.034) ng/mL NT-Pro-B Natriuret Pep pg/mL Total Protein 4.7 L (6.3-8.2) g/dL Albumin 2.3 L (3.5-5.0) g/dL Blood Type Blood Type Recheck Bld Type Recheck Status Antibody Screen Spec Expiration Date 11/30/18 11/30/18 11/30/18 Range/Units 17:50 17:50 17:50 WBC (3.8-10.6) k/uL RBC (4.30-5.90) m/uL Hgb (13.0-17.5) gm/dL Hct (39.0-53.0) % MCV (80.0-100.0) fL MCH (25.0-35.0) pg MCHC (31.0-37.0) g/dL RDW (11.5-15.5) % Plt Count (150-450) k/uL Neutrophils % % Lymphocytes % % Monocytes % % Eosinophils % % Basophils % % Neutrophils # (1.3-7.7) k/uL Lymphocytes # (1.0-4.8) k/uL Monocytes # (0-1.0) k/uL Eosinophils # (0-0.7) k/uL Basophils # (0-0.2) k/uL Hypochromasia Macrocytosis PT 10.5 (9.0-12.0) sec INR 1.0 (<1.2) APTT 23.4 (22.0-30.0) sec VBG pH (7.31-7.41) VBG pCO2 (37-51) mmHg VBG HCO3 (24-28) mmol/L Sodium (137-145) mmol/L Potassium (3.5-5.1) mmol/L Chloride (98-107) mmol/L Carbon Dioxide (22-30) mmol/L Anion Gap mmol/L BUN (9-20) mg/dL Creatinine (0.66-1.25) mg/dL Est GFR (CKD-EPI)AfAm (>60 ml/min/1.73 sqM) Est GFR (CKD-EPI)NonAf (>60 ml/min/1.73 sqM) Glucose (74-99) mg/dL Plasma Lactic Acid Felipe 2.1 H* (0.7-2.0) mmol/L Calcium (8.4-10.2) mg/dL Phosphorus (2.5-4.5) mg/dL Magnesium (1.6-2.3) mg/dL Total Bilirubin (0.2-1.3) mg/dL AST (17-59) U/L ALT (21-72) U/L Alkaline Phosphatase (38-126) U/L Creatine Kinase (55-170) U/L Troponin I <0.012 (0.000-0.034) ng/mL NT-Pro-B Natriuret Pep pg/mL Total Protein (6.3-8.2) g/dL Albumin (3.5-5.0) g/dL Blood Type Blood Type Recheck Bld Type Recheck Status Antibody Screen Spec Expiration Date 11/30/18 11/30/18 Range/Units 17:50 17:50 WBC (3.8-10.6) k/uL RBC (4.30-5.90) m/uL Hgb (13.0-17.5) gm/dL Hct (39.0-53.0) % MCV (80.0-100.0) fL MCH (25.0-35.0) pg MCHC (31.0-37.0) g/dL RDW (11.5-15.5) % Plt Count (150-450) k/uL Neutrophils % % Lymphocytes % % Monocytes % % Eosinophils % % Basophils % % Neutrophils # (1.3-7.7) k/uL Lymphocytes # (1.0-4.8) k/uL Monocytes # (0-1.0) k/uL Eosinophils # (0-0.7) k/uL Basophils # (0-0.2) k/uL Hypochromasia Macrocytosis PT (9.0-12.0) sec INR (<1.2) APTT (22.0-30.0) sec VBG pH (7.31-7.41) VBG pCO2 (37-51) mmHg VBG HCO3 (24-28) mmol/L Sodium (137-145) mmol/L Potassium (3.5-5.1) mmol/L Chloride (98-107) mmol/L Carbon Dioxide (22-30) mmol/L Anion Gap mmol/L BUN (9-20) mg/dL Creatinine (0.66-1.25) mg/dL Est GFR (CKD-EPI)AfAm (>60 ml/min/1.73 sqM) Est GFR (CKD-EPI)NonAf (>60 ml/min/1.73 sqM) Glucose (74-99) mg/dL Plasma Lactic Acid Felipe (0.7-2.0) mmol/L Calcium (8.4-10.2) mg/dL Phosphorus (2.5-4.5) mg/dL Magnesium (1.6-2.3) mg/dL Total Bilirubin (0.2-1.3) mg/dL AST (17-59) U/L ALT (21-72) U/L Alkaline Phosphatase (38-126) U/L Creatine Kinase (55-170) U/L Troponin I (0.000-0.034) ng/mL NT-Pro-B Natriuret Pep 1090 pg/mL Total Protein (6.3-8.2) g/dL Albumin (3.5-5.0) g/dL Blood Type O Positive Blood Type Recheck No Previous Record Bld Type Recheck Status CABO Indicated Antibody Screen NEGATIVE Spec Expiration Date 12/03/2018 - 7270 - EKG Data -: EKG Interpreted by Me (EKG shows sinus tachycardia rate of 107, [place] 140, QRS 80, QTC 50) - Radiology Data Radiology results: report reviewed (X-ray abdominal serias and chest is negative for acute disease also some bilateral lower extremity is negative for DVT), misael ge reviewed Disposition Clinical Impression: Weakness, Dehydration, Hyponatremia, Hypotension, Renal insufficiency Disposition: ADMITTED IP TO THIS HOSP Condition: Fair Is patient prescribed a controlled substance at d/c from ED?: No Referrals: Leeann Varma III, MD [Primary Care Provider] - 1-2 days
[2018-11-30 18:03] LABS: VBG PH 7.39 (7.31-7.41)
[2018-11-30 18:10] LABS: Albumin 2.3 g/dL (3.5-5.0); Calcium 7.5 mg/dL (8.4-10.2); Magnesium 3.1 mg/dL (1.6-2.3); Phosphorus 4.2 mg/dL (2.5-4.5); Potassium 4.4 mmol/L (3.5-5.1); Total Bilirubin 0.7 mg/dL (0.2-1.3); Total Protein 4.7 g/dL (6.3-8.2)
[2018-11-30 18:15] LABS: Partial Thromboplastin Time 23.4 sec (22.0-30.0); Prothrombin Time 10.5 sec (9.0-12.0)
[2018-11-30 18:34] LABS: Basophils # (A) 0.2 k/uL (0-0.2); Basophils % (A) 1 %; Eosinophils % (A) 0 %; HCT 43.9 % (39.0-53.0); Hypochromasia Moderate; Lymphocytes # (A) 0.8 k/uL (1.0-4.8); Lymphocytes % (A) 4 %; MCH 32.4 pg (25.0-35.0); MCHC 31.9 g/dL (31.0-37.0); MCV 101.5 fL (80.0-100.0); Macrocytosis Slight; Mean Platelet Volume 7.7; Monocytes # (A) 0.7 k/uL (0-1.0); Monocytes % (A) 4 %; Neutrophils # (A) 18.1 k/uL (1.3-7.7); Neutrophils % (A) 89 %; Platelet Count 423 k/uL (150-450); RBC 4.33 m/uL (4.30-5.90); WBC 20.2 k/uL (3.8-10.6)
[2018-11-30] MEDS ORDERED: IPRATROPIUM-ALBUTEROL 3 ML NEB INHALATION PRN (19:46)
[2018-11-30] MEDS ORDERED: IPRATROPIUM-ALBUTEROL 3 ML NEB INHALATION STA (19:46)
[2018-11-30] MEDS ORDERED: SODIUM CHLORIDE 0.9% 1,000 ML IV ONE (19:54)
[2018-11-30] MEDS ORDERED: MORPHINE SULFATE 4 MG/ML SYRINGE IVP PRN (19:56)
--- NOTE | 2018-11-30 19:57 | US ---
EXAMINATION TYPE: US venous doppler duplex LE DATE OF EXAM: 11/30/2018 7:40 PM COMPARISON: US CLINICAL HISTORY: edema. Edema since November 16, 2018. No HX of DVT. Patient not on blood thinners. SIDE PERFORMED: Bilateral TECHNIQUE: The lower extremity deep venous system is examined utilizing real time linear array sonog royer with graded compression, doppler sonography and color-flow sonography. VESSELS IMAGED: External Iliac Vein (EIV) Common Femoral Vein Deep Femoral Vein Greater Saphenous Vein * Femoral Vein Popliteal Vein Small Saphenous Vein * Proximal Calf Veins (* superficial vessels) Right Leg: No evidence of DVT in veins imaged from prox calf veins to EIV. Left Leg: No evidence of DVT in veins imaged from prox calf veins to EIV. IMPRESSION: Negative exam. No evidence of deep venous thrombosis in both legs.
[2018-11-30] MEDS ORDERED: IPRATROPIUM 0.5 MG/2.5 ML NEBU INHALATION PRN (20:42)
[2018-11-30] MEDS ORDERED: FAMOTIDINE 20 MG TAB PO PRN (20:42)
[2018-11-30] MEDS ORDERED: BENZONATATE 100 MG CAP PO PRN (20:42)
[2018-11-30] MEDS ORDERED: ALPRAZolam 0.5 MG TAB PO PRN (20:42)
[2018-11-30] MEDS ORDERED: CYCLOBENZAPRINE 10 MG TAB PO PRN (20:42)
[2018-11-30 21:10] LABS: Appearance,Urine Clear (Clear); Bilirubin,Urine Negative (Negative); Blood,Urine Small (Negative); Color,Urine Yellow; Glucose,Urine (UA) Negative (Negative); Granular Casts,Urine 3 /lpf (0); Hyaline Casts,Urine 6 /lpf (0-2); Ketones,Urine Negative (Negative); Leukocyte Esterase,Urine Trace (Negative); Mucus,Urine Rare /hpf; Nitrite,Urine Negative (Negative); PH, Urine 5.5 (5.0-8.0); Protein,Urine Trace (Negative); Specific Gravity,Urine 1.019 (1.001-1.035); Urobilinogen,Urine <2.0 mg/dL (<2.0); WBC,Urine 1 /hpf (0-5)
--- NOTE | 2018-11-30 22:12 | HP ---
HISTORY AND PHYSICAL DATE OF SERVICE: 11/30/2018. CHIEF COMPLAINTS: Weakness, diarrhea and hypotension. HISTORY OF PRESENT ILLNESS: This 73-year-old gentleman with a past medical history of multiple medical problems, including history of asthma, GERD, hypertension, hyperlipidemia, history of pneumonia, history of bronchitis, abdominal aortic aneurysm, history of appendectomy, being followed by Dr. Varma in the outpatient setting, had back surgery recently at [facility]. Subsequently patient had elevated WBC and multiple other medical issues, and patient was admitted to [facility], evaluated and improved significantly. Patient went home, but currently the patient is complaining of progressive weakness. The patient had continuous diarrhea, unable to keep anything down. The patient also had shortness of breath. Blood pressure was very low; 60 systolic yesterday. Patient refused to come to the hospital, and today his daughter took the patient home. After IV fluids the patient's blood pressure is improving. Patient is being closely monitored at this time. Abdomen is distended. There is no history of any fever, rigor or chills. No history of headache, loss of consciousness, seizures. PAST MEDICAL HISTORY: 1. History of asthma. 2. GERD. 3. Hypertension. 4. Hyperlipidemia. 5. History of pneumonia. 6. History of appendectomy. 7. Back surgery. HOME MEDICATIONS: 1. Oxy-IR 5 mg q.6 p.r.n. 2. Flagyl 500 mg p.o. t.i.d. 3. Zocor 20 mg at bedtime. 4. Senna 2 tablets at bedtime p.r.n. 5. Claritin 10 mg at bedtime. 6. Atrovent p.r.n. 7. Flonase 1 spray b.i.d. 8. Pepcid 20 mg daily p.r.n. 9. Flexeril 10 mg t.i.d. p.r.n. 10.Tessalon Perles. 11.Ventolin nebulizers. 12.Ventolin HFA. 13.Xanax 0.5 q.8 p.r.n. ALLERGIES: NONE. FAMILY HISTORY: History of CLL in the family. SOCIAL HISTORY: History of smoking, continued and ongoing. History of alcohol intake, occasional. REVIEW OF SYSTEMS: ENT: Diminished hearing. Diminished vision. CARDIOVASCULAR SYSTEM: As mentioned earlier. RESPIRATORY SYSTEM: As mentioned earlier. GI: As mentioned earlier. : No dysuria or retention. NERVOUS SYSTEM: As mentioned earlier. ALLERGY/IMMUNOLOGY: No asthma, hayfever. MUSCULOSKELETAL: As mentioned earlier. HEMATOLOGY/ONCOLOGY: No history of anemia. ENDOCRINE: No history of diabetes, hypothyroidism. CONSTITUTIONAL: As mentioned earlier. DERMATOLOGY: Negative. RHEUMATOLOGY: Negative. PSYCHIATRY: As mentioned earlier. PHYSICAL EXAMINATION: Patient alert and oriented x3. Pulse 112, irregular. Blood pressure is 117/79, respiration 20, temperature normal, pulse ox 94% on 2 L. HEENT: Conjunctivae normal. Oral mucosa moist. NECK: No jugular venous distention. No carotid bruit. No lymph node enlargement. CARDIOVASCULAR SYSTEM: S1, S2 muffled. Tachycardic. No S3. No S4. RESPIRATORY SYSTEM: Breath sounds diminished at the bases. A few bilateral scattered rhonchi and crackles. Efforts are markedly increased. Audible rhonchi also present. ABDOMEN: Soft. Diffuse distention. No guarding. No rigidity. No mass palpable. LEGS: No edema. No swelling. NERVOUS SYSTEM: Higher functions as mentioned earlier. Moves all 4 limbs. Patient is diffusely weak. LYMPHATICS: No lymph node palpable in neck, axillae or groin. SKIN: No ulcer, rash, bleeding. JOINTS: No active deforming arthropathy. LABS: WBC 20.2, hemoglobin 14. Sodium 130, potassium 4.5, plasma lactic acid 2.1. ASSESSMENT: 1. Bronchial asthma, acute exacerbation, with acute purulent tracheobronchitis. 2. Severe hypotension, possibly secondary to hypovolemia and dehydration secondary to diarrhea. 3. Possible acute diarrhea secondary to Clostridium difficile colitis or antibiotic- induced diarrhea. 4. Hyponatremia. 5. Elevated creatinine with mild acute renal failure, possibly prerenal. 6. Elevated lactic acid. 7. Increased white count, possibly reactive in nature. 8. History of recent back surgery. 9. History of asthma. 10.History of gastroesophageal reflux disease. 11.Hypertension. 12.Hyperlipidemia. 13.History of pneumonia. 14.History of abdominal aortic aneurysm. 15.History of chronic back pain. 16.History of nicotine dependence, continued and ongoing. 17.History of back surgery and degenerative joint disease. 18.Gait dysfunction. RECOMMENDATIONS AND DISCUSSION: In this 73-year-old gentleman who presented with multiple complex medical issues, we will monitor the patient closely, continue the current management, continue symptomatic treatment. Otherwise, I would recommend empiric vancomycin at this time. Obtain cultures, including stool cultures, stool C difficile. I would also recommend PT/OT evaluation. Social service consultation also. I would recommend an infectious disease evaluation. Will avoid antibiotics for now. Continue to monitor. DVT prophylaxis. Guarded prognosis because of multiple complex medical issues. Repeat labs will be ordered, including chest x-ray. Further recommendations to follow. Will check a random cortisol as well. A copy of this dictation is being forwarded to Dr. Varma, who is the primary physician. Prognosis guarded. Discussed at length with the patient's daughter and the patient's at the bedside. MMODL / IJN: [id number] /
[2018-11-30 22:16] LABS: Glucose,Whole Blood 169 mg/dL (75-99)
[2018-11-30] MEDS: INSULIN ASPART (NovoLOG) 100 UNIT/ML VIAL SQ SCH (22:44)
[2018-11-30] MEDS: PANTOPRAZOLE 40 MG/10 ML VIAL IVP SCH (22:44)
[2018-11-30] MEDS: FLUTICASONE 50MCG/SPRAY NASAL 16GM EA NOSTRIL SCH (22:44)
[2018-11-30] MEDS: LORATADINE 10 MG TAB PO SCH (22:44)
[2018-11-30] MEDS: ATORVASTATIN 10 MG TAB PO SCH (22:44)
[2018-11-30] MEDS: VANCOMYCIN ORAL SOLUTION 250 MG/5 ML BOTTLE PO SCH (22:59)
[2018-12-01] MEDS: methylPREDNISolone SOD SUCCI 125 MG/2 ML VIAL IV SCH ×4 (01:04→17:38)
[2018-12-01] MEDS: VANCOMYCIN ORAL SOLUTION 250 MG/5 ML BOTTLE PO SCH ×4 (02:01→17:39)
[2018-12-01] MEDS: CHERRY FLAVOR 60 ML BOTTLE PO PRN ×3 (05:32→17:38)
[2018-12-01 07:10] LABS: Glucose,Whole Blood 143 mg/dL (75-99)
[2018-12-01 07:19] LABS: Basophils # (A) 0.1 k/uL (0-0.2); Basophils % (A) 1 %; Eosinophils % (A) 0 %; HCT 37.9 % (39.0-53.0); HGB 12.4 gm/dL (13.0-17.5); Lymphocytes # (A) 0.4 k/uL (1.0-4.8); Lymphocytes % (A) 3 %; MCH 32.3 pg (25.0-35.0); MCHC 32.7 g/dL (31.0-37.0); MCV 98.9 fL (80.0-100.0); Mean Platelet Volume 7.9; Monocytes # (A) 0.4 k/uL (0-1.0); Monocytes % (A) 3 %; Neutrophils # (A) 13.9 k/uL (1.3-7.7); Neutrophils % (A) 93 %; Platelet Count 393 k/uL (150-450); RBC 3.84 m/uL (4.30-5.90); RDW 14.1 % (11.5-15.5); WBC 14.9 k/uL (3.8-10.6)
[2018-12-01 07:31] LABS: Calcium 7.6 mg/dL (8.4-10.2); Potassium 4.6 mmol/L (3.5-5.1)
[2018-12-01] MEDS: INSULIN ASPART (NovoLOG) 100 UNIT/ML VIAL SQ SCH ×4 (07:42→20:33)
[2018-12-01] MEDS: FLUTICASONE 50MCG/SPRAY NASAL 16GM EA NOSTRIL SCH ×2 (07:42→20:33)
[2018-12-01] MEDS: ENOXAPARIN 40 MG/0.4 ML SYRINGE SQ SCH (07:42)
[2018-12-01] MEDS: PANTOPRAZOLE 40 MG/10 ML VIAL IVP SCH (07:42)
--- NOTE | 2018-12-01 07:43 | XR ---
EXAMINATION TYPE: XR chest 1V portable DATE OF EXAM: 12/01/2018 COMPARISON: 11/24/2018 INDICATION: CHF TECHNIQUE: Single frontal view of the chest is obtained. FINDINGS: The heart size is normal. The pulmonary vasculature is normal. There is blunting left costophrenic angle. Some mild increased lung markings may be present at the le ft base. Small left pleural effusion and mild atelectasis or infiltrate such as from developing pneum onia should be considered. Findings are changed from comparison. IMPRESSION: 1. Mild left lower lobe infiltrate and/or small left pleural effusion
[2018-12-01] MEDS: IPRATROPIUM-ALBUTEROL 3 ML NEB INHALATION SCH ×4 (08:31→19:58)
[2018-12-01] MEDS: FORMOTEROL FUMARATE 20 MCG/2 ML NEBU INHALATION SCH ×2 (08:31→19:58)
[2018-12-01] MEDS: BUDESONIDE 1 MG/2 ML NEBU INHALATION SCH ×2 (08:31→19:58)
--- NOTE | 2018-12-01 10:20 | ECHOF ---
Referral Reason:chf MEASUREMENTS -------- HEIGHT: 167.6 cm WEIGHT: 84.4 kg BP: 98/55 IVSd: 1.1 cm (0.6 - 1.1) LVIDd: 3.2 cm (3.9 - 5.3) LVPWd: 1.3 cm (0.6 - 1.1) IVSs: 1.4 cm LVIDs: 1.7 cm LVPWs: 1.5 cm Ao Diam: 3.4 cm (2.0 - 3.7) AV Cusp: 1.7 cm (1.5 - 2.6) LA Diam: 1.7 cm (2.7 - 3.8) FINDINGS -------- Sinus rhythm. This was a technically difficult study with suboptimal views. Limited Study The left ventricular size is normal. There is mild concentric left ventricular hypertrophy. Overa ll left ventricular systolic function is normal with, an EF between 55 - 60 %. Lumason used CONCLUSIONS -------- 1. Sinus rhythm. 2. This was a technically difficult study with suboptimal views. 3. Limited Study 4. The left ventricular size is normal. 5. There is mild concentric left ventricular hypertrophy. 6. Overall left ventricular systolic function is normal with, an EF between 55 - 60 %. 7. Lumason used A OPERATOR: Marisela Ramirez RDCS
--- NOTE | 2018-12-01 11:16 | XR ---
EXAMINATION TYPE: XR abdomen acute w cxr DATE OF EXAM: 11/30/2018 COMPARISON: NONE HISTORY: Black tarry stools. Hypotension. TECHNIQUE: Chest x-ray with supine and upright abdomen FINDINGS: There is no heart failure nor confluent pneumonic infiltrate. Heart size is normal. There is no pleur al effusion. There are chest leads. There are multiple distended gas-filled loops of bowel in the abdomen. There is no sign of free air. There are multiple skin justo over the mid abdomen apparently from spine surgery. There is suggesti on of some thumbprinting of the right colon. IMPRESSION: Intestinal ileus. There is possible thumbprinting of the right colon that raises the possibility of i schemic bowel. Follow-up recommended. No free air. No evidence of acute lung disease.
[2018-12-01 12:12] LABS: Glucose,Whole Blood 173 mg/dL (75-99)
[2018-12-01 12:25] LABS: Appearance,Urine Clear (Clear); Bacteria,Urine Rare /hpf; Bilirubin,Urine Negative (Negative); Blood,Urine Small (Negative); Color,Urine Yellow; Glucose,Urine (UA) Negative (Negative); Hyaline Casts,Urine 4 /lpf (0-2); Ketones,Urine Negative (Negative); Leukocyte Esterase,Urine Negative (Negative); Nitrite,Urine Negative (Negative); Protein,Urine Trace (Negative); RBC,Urine 1 /hpf (0-5); Specific Gravity,Urine 1.019 (1.001-1.035); Squamous Epithelial Cell,Urine <1 /hpf (0-4); Urobilinogen,Urine <2.0 mg/dL (<2.0); WBC,Urine 1 /hpf (0-5)
--- NOTE | 2018-12-01 14:08 | P.GSCN ---
History of Present Illness Consult date: 12/01/18 Reason for Consult: ileus Requesting physician: Jadon Barnett History of present illness: CHIEF COMPLAINT: ileus HISTORY OF PRESENT ILLNESS: 73-year-old male who recently had back surgery on 11/16/2018. Patient states he's been doing well postoperatively. He reports about 2 days ago he began having diarrhea. He denies abdominal pain. He denies nausea or vomiting. He reports he has been tolerating a regular diet without difficulty. PAST MEDICAL HISTORY: See list. PAST SURGICAL HISTORY: See list. SOCIAL HISTORY: No illicit drug use. REVIEW OF SYSTEMS: CONSTITUTIONAL: Denies fever or chills. HEENT: Denies blurred vision, vision changes, or eye pain. Denies hemoptysis CARDIOVASCULAR: Denies chest pain or pressure. RESPIRATORY: No shortness of breath. GASTROINTESTINAL: Refer to HPI for pertinent findings HEMATOLOGIC: Denies bleeding disorders. GENITOURINARY: Denies any blood in urine. SKIN: Denies pruitis. Denies rash. PHYSICAL EXAM: VITAL SIGNS: Reviewed. GENERAL: Well-developed in no acute distress. HEENT: No sclera icterus. Extraocular movements grossly intact. Moist buccal mucosa. Head is atraumatic, normocephalic. ABDOMEN: Soft. Mildly distended. Nontender. Positive bowel sounds. NEUROLOGIC: Alert and oriented. Cranial nerves II through XII grossly intact. LABORATORY DATA: WBC on admission 20.2. Repeat 14.9. Lactic acid 2.0. IMAGING: Abdominal x-ray: Possible thumb printing of the right colon that raises possibility of ischemic bowel. No free air. Multiple distended gas filled loops of bowel. ASSESSMENT: 1. Diarrhea x 2 days, without additional abdominal complaints PLAN: Patient has been placed on antibiotics per internal medicine. Monitor WBC Stool studies ordered Diet as tolerated Obtain CT abdomen pelvis with oral and IV contrast for further evaluation. Further recommendations pending CT results Nurse practitioner note has been reviewed by physician. Signing provider agrees with the documented findings, assessment, and plan of care. 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 History of Any Multi-Drug Resistant Organisms: None Reported Past Surgical History: Appendectomy, Back Surgery, Cholecystectomy, Tonsillectomy Additional Past Surgical History / Comment(s): 11/16/18 low back surgery- discectomy/replaced vertebra/spacer and fusion with rodding at [facility], colonoscopy with benign polyp. Past Anesthesia/Blood Transfusion Reactions: No Reported Reaction Past Psychological History: No Psychological Hx Reported Additional Psychological History / Comment(s): Pt resides with his spouse. He is using a cane or walker to ambulate. He has a nebulizer. He has not been a ble to drive recently d/t recent back surgery, his spouse drives. Smoking Status: Current every day smoker Past Alcohol Use History: Rare Additional Past Alcohol Use History / Comment(s): Pt started smoking in 1957 and smokes 3-1 ppd. Past Drug Use History: None Reported - Past Family History Father Family Medical History: Cancer Additional Family Medical History / Comment(s): Father of CCL at the age of 87yrs. Mother Family Medical History: Cancer, Myocardial Infarction (UT) Additional Family Medical History / Comment(s): Mother had cervical cancer. She of a UT at the age of 64yrs. Medications and Allergies Home Medications Medication Instructions Recorded Confirmed Type ALPRAZolam [Xanax] 0.5 mg PO Q8H PRN 11/24/18 11/30/18 History Albuterol Inhaler [Ventolin Hfa 1 - 2 puff INHALATION RT-Q4H PRN 11/24/18 11/30/18 History Inhaler] Albuterol Nebulized [Ventolin 2.5 mg INHALATION RT-QID PRN 11/24/18 11/30/18 History Nebulized] Benzonatate [Tessalon Perles] 200 mg PO TID PRN 11/24/18 11/30/18 History Cyclobenzaprine [Flexeril] 10 mg PO TID PRN 11/24/18 11/30/18 History Famotidine [Pepcid] 20 mg PO DAILY PRN 11/24/18 11/30/18 History Fluticasone Nasal [place] [Flonase 1 spray EA NOSTRIL BID 11/24/18 11/30/18 History Nasal [place]] Ipratropium Nebulized [Atrovent 0.5 mg INHALATION RT-QID PRN 11/24/18 11/30/18 History Nebulized 0.2 MG/ML] Loratadine [Claritin] 10 mg PO HS 11/24/18 11/30/18 History Sennosides/Docusate Sodium 2 tab PO HS PRN 11/24/18 11/30/18 History [Senna-S Laxative Tablet] Simvastatin [Zocor] 20 mg PO HS 11/24/18 11/30/18 History oxyCODONE HCL [OxyIR] 5 mg PO Q6H PRN 11/24/18 11/30/18 History metroNIDAZOLE [Flagyl] 500 mg PO TID #21 tab 11/25/18 11/30/18 Rx Allergies Allergy/AdvReac Type Severity Reaction Status Date / Time No Known Allergies Allergy Verified 11/30/18 17:05 Surgical - Exam Vital Signs Pulse Ox 52 L 11/30/18 16:34 Results - Labs 12/01/18 06:33 12/01/18 06:33 Abnormal Lab Results - Last 24 Hours (Table) 11/30/18 11/30/18 11/30/18 Range/Units 11:34 17:50 17:50 WBC (3.8-10.6) k/uL RBC (4.30-5.90) m/uL Hgb (13.0-17.5) gm/dL Hct (39.0-53.0) % MCV (80.0-100.0) fL Neutrophils # (1.3-7.7) k/uL Lymphocytes # (1.0-4.8) k/uL VBG HCO3 22 L (24-28) mmol/L Sodium 130 L (137-145) mmol/L Carbon Dioxide 20 L (22-30) mmol/L BUN 88 H (9-20) mg/dL Creatinine 1.37 H (0.66-1.25) mg/dL Glucose 115 H (74-99) mg/dL POC Glucose (mg/dL) (75-99) mg/dL Plasma Lactic Acid Felipe (0.7-2.0) mmol/L Calcium 7.5 L (8.4-10.2) mg/dL Magnesium 3.1 H (1.6-2.3) mg/dL Creatine Kinase 23 L (55-170) U/L Total Protein 4.7 L (6.3-8.2) g/dL Albumin 2.3 L (3.5-5.0) g/dL Urine Protein Trace H (Negative) Urine Blood Small H (Negative) Ur Leukocyte Esterase (Negative) Urine Bacteria Rare H (None) /hpf Hyaline Casts 4 H (0-2) /lpf Urine Mucus (None) /hpf 11/30/18 11/30/18 11/30/18 Range/Units 17:50 17:50 20:32 WBC 20.2 H (3.8-10.6) k/uL RBC (4.30-5.90) m/uL Hgb (13.0-17.5) gm/dL Hct (39.0-53.0) % MCV 101.5 H (80.0-100.0) fL Neutrophils # 18.1 H (1.3-7.7) k/uL Lymphocytes # 0.8 L (1.0-4.8) k/uL VBG HCO3 (24-28) mmol/L Sodium (137-145) mmol/L Carbon Dioxide (22-30) mmol/L BUN (9-20) mg/dL Creatinine (0.66-1.25) mg/dL Glucose (74-99) mg/dL POC Glucose (mg/dL) (75-99) mg/dL Plasma Lactic Acid Felipe 2.1 H* (0.7-2.0) mmol/L Calcium (8.4-10.2) mg/dL Magnesium (1.6-2.3) mg/dL Creatine Kinase (55-170) U/L Total Protein (6.3-8.2) g/dL Albumin (3.5-5.0) g/dL Urine Protein Trace H (Negative) Urine Blood Small H (Negative) Ur Leukocyte Esterase Trace H (Negative) Urine Bacteria (None) /hpf Hyaline Casts 6 H (0-2) /lpf Urine Mucus Rare H (None) /hpf 11/30/18 12/01/18 12/01/18 Range/Units 22:12 06:33 06:33 WBC 14.9 H (3.8-10.6) k/uL RBC 3.84 L (4.30-5.90) m/uL Hgb 12.4 L (13.0-17.5) gm/dL Hct 37.9 L (39.0-53.0) % MCV (80.0-100.0) fL Neutrophils # 13.9 H (1.3-7.7) k/uL Lymphocytes # 0.4 L (1.0-4.8) k/uL VBG HCO3 (24-28) mmol/L Sodium 130 L (137-145) mmol/L Carbon Dioxide 21 L (22-30) mmol/L BUN 68 H (9-20) mg/dL Creatinine 1.26 H (0.66-1.25) mg/dL Glucose 139 H (74-99) mg/dL POC Glucose (mg/dL) 169 H (75-99) mg/dL Plasma Lactic Acid Felipe (0.7-2.0) mmol/L Calcium 7.6 L (8.4-10.2) mg/dL Magnesium (1.6-2.3) mg/dL Creatine Kinase (55-170) U/L Total Protein (6.3-8.2) g/dL Albumin (3.5-5.0) g/dL Urine Protein (Negative) Urine Blood (Negative) Ur Leukocyte Esterase (Negative) Urine Bacteria (None) /hpf Hyaline Casts (0-2) /lpf Urine Mucus (None) /hpf 12/01/18 12/01/18 Range/Units 07:06 12:01 WBC (3.8-10.6) k/uL RBC (4.30-5.90) m/uL Hgb (13.0-17.5) gm/dL Hct (39.0-53.0) % MCV (80.0-100.0) fL Neutrophils # (1.3-7.7) k/uL Lymphocytes # (1.0-4.8) k/uL VBG HCO3 (24-28) mmol/L Sodium (137-145) mmol/L Carbon Dioxide (22-30) mmol/L BUN (9-20) mg/dL Creatinine (0.66-1.25) mg/dL Glucose (74-99) mg/dL POC Glucose (mg/dL) 143 H 173 H (75-99) mg/dL Plasma Lactic Acid Felipe (0.7-2.0) mmol/L Calcium (8.4-10.2) mg/dL Magnesium (1.6-2.3) mg/dL Creatine Kinase (55-170) U/L Total Protein (6.3-8.2) g/dL Albumin (3.5-5.0) g/dL Urine Protein (Negative) Urine Blood (Negative) Ur Leukocyte Esterase (Negative) Urine Bacteria (None) /hpf Hyaline Casts (0-2) /lpf Urine Mucus (None) /hpf Diabetes panel 11/30/18 12/01/18 Range/Units 17:50 06:33 Sodium 130 L 130 L (137-145) mmol/L Potassium 4.4 4.6 (3.5-5.1) mmol/L Chloride 99 101 (98-107) mmol/L Carbon Dioxide 20 L 21 L (22-30) mmol/L BUN 88 H 68 H (9-20) mg/dL Creatinine 1.37 H 1.26 H (0.66-1.25) mg/dL Glucose 115 H 139 H (74-99) mg/dL Calcium 7.5 L 7.6 L (8.4-10.2) mg/dL AST 38 (17-59) U/L ALT 38 (21-72) U/L Alkaline Phosphatase 113 (38-126) U/L Total Protein 4.7 L (6.3-8.2) g/dL Albumin 2.3 L (3.5-5.0) g/dL Calcium panel 11/30/18 12/01/18 Range/Units 17:50 06:33 Calcium 7.5 L 7.6 L (8.4-10.2) mg/dL Phosphorus 4.2 (2.5-4.5) mg/dL Albumin 2.3 L (3.5-5.0) g/dL Pituitary panel 11/30/18 12/01/18 Range/Units 17:50 06:33 Sodium 130 L 130 L (137-145) mmol/L Potassium 4.4 4.6 (3.5-5.1) mmol/L Chloride 99 101 (98-107) mmol/L Carbon Dioxide 20 L 21 L (22-30) mmol/L BUN 88 H 68 H (9-20) mg/dL Creatinine 1.37 H 1.26 H (0.66-1.25) mg/dL Glucose 115 H 139 H (74-99) mg/dL Calcium 7.5 L 7.6 L (8.4-10.2) mg/dL Adrenal panel 11/30/18 12/01/18 Range/Units 17:50 06:33 Sodium 130 L 130 L (137-145) mmol/L Potassium 4.4 4.6 (3.5-5.1) mmol/L Chloride 99 101 (98-107) mmol/L Carbon Dioxide 20 L 21 L (22-30) mmol/L BUN 88 H 68 H (9-20) mg/dL Creatinine 1.37 H 1.26 H (0.66-1.25) mg/dL Glucose 115 H 139 H (74-99) mg/dL Calcium 7.5 L 7.6 L (8.4-10.2) mg/dL Total Bilirubin 0.7 (0.2-1.3) mg/dL AST 38 (17-59) U/L ALT 38 (21-72) U/L Alkaline Phosphatase 113 (38-126) U/L Total Protein 4.7 L (6.3-8.2) g/dL Albumin 2.3 L (3.5-5.0) g/dL
[2018-12-01] MEDS: IOPAMIDOL-300 CONTRAST 30 ML VIAL (ORAL USE) PO PRN ×2 (15:12→15:58)
[2018-12-01 17:07] LABS: Glucose,Whole Blood 143 mg/dL (75-99)
--- NOTE | 2018-12-01 17:48 | CT ---
EXAMINATION TYPE: CT abdomen pelvis w con DATE OF EXAM: 12/01/2018 COMPARISON: HISTORY: Recent back surgery, possible ischemic bowel CT DLP: 1474.1 mGycm Automated exposure control for dose reduction was used. TECHNIQUE: Helical acquisition of images was performed from the lung bases through the pelvis. CONTRAST: Performed with Oral Contrast and with IV Contrast, patient injected with 80 mL of Isovue 300. FINDINGS: There is mild subsegmental atelectasis at the lung bases. There is minimal free fluid in the abdomen. There is large area of decreased enhancement in the spleen consistent with splenic acute infarct. St omach appears intact. There is no evidence of pancreatic mass. There are surgical clips probably from cholecystectomy. I'll ducts are not dilated. Liver has normal size and contour. There is no focal li toan defect. Heart size is normal. There are some distended air and fluid-filled loops of large bowel in the right and mid abdomen. I se e no significant intestinal wall thickening. There is oral contrast down to the distal ileum. There i s tiny amount of oral contrast in the cecum. There is no sign of a small bowel obstruction. There is no evidence of free air. I see no intramural air. There is contrast opacification of the abdominal aorta down to the renal arteries. There is apparent complete occlusion of the infrarenal abdominal aorta. There is arterial flow seen in the external aster ac arteries and femoral arteries. This is presumably through collateral vessels. There is large area of decreased enhancement of the right kidney consistent with acute renal infarct or severe ischemia. There are bilateral renal cortical cysts that measure up to 3 cm. There is no hyd ronephrosis. There is slight decreased enhancement posterior cortex left kidney consistent with mild ischemia. There is arterial flow seen in the superior mesenteric artery and the celiac artery. There is subcutaneous edema around the abdomen. There is posterior fusion surgery in the lower lumba r spine. I see no bony destructive process. 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 THERE IS EVIDENCE OF SEVERE ISCHEMIA OR INFARCT INVOLVING MOST OF THE RIGHT KIDNEY. THERE IS THROMBOS IS OF THE INFRARENAL ABDOMINAL AORTA. THERE IS ARTERIAL FLOW SEEN IN THE RIGHT RENAL ARTERY. THERE IS ARTERIAL FLOW SEEN IN THE SPLENIC ARTERY. DISTENDED LARGE BOWEL WITH FLUID LEVELS CONSISTENT WITH ILEUS. NO DEFINITE INTESTINAL ISCHEMIA. NO VICTOR M WEL OBSTRUCTION. Minimal abdominal ascites.
--- NOTE | 2018-12-01 18:10 | PN ---
PROGRESS NOTE DATE OF SERVICE: 12/01/2018. This 73-year-old gentleman who was admitted with weakness and hypotension also had significant shortness of breath. The patient also had some diarrhea. Patient is being empirically treated with vancomycin at this time. A 2D echo with Doppler was also done today by Cardiology, which showed an ejection fraction about 55% to 60% which was a limited study. Past medical history reviewed. REVIEW OF SYSTEMS: CARDIOVASCULAR SYSTEM: No angina, palpitations. RESPIRATORY SYSTEM: As mentioned earlier. GI: As mentioned earlier. : No dysuria or retention. NERVOUS SYSTEM: As mentioned earlier. CURRENT MEDICATIONS: Reviewed. They include: 1. DuoNeb q.i.d. and p.r.n. 2. Xanax 0.5 q.8. 3. Lipitor 10 mg at bedtime. 4. Tessalon Perles. 5. Pulmicort 1 mg b.i.d. 6. Flexeril 10 mg p.o. t.i.d. p.r.n. 7. Lovenox 40 mg subcutaneously daily. 8. Flonase. 9. Perforomist 20 mg b.i.d. 10.NovoLog before meals and at bedtime. 11.Isovue 30 mL p.o. q.6 p.r.n. 12.Atrovent. 13.Claritin. 14.Solu-Medrol 60 IV q.6. 15.Morphine sulfate. 16.OxyIR. 17.Protonix 40 mg daily. 18.Vancomycin 250 mg p.o. q.6. PHYSICAL EXAMINATION: Patient is alert, oriented x3. Pulse 94, blood pressure 99/46, respiration 15, temperature 97.7, pulse ox 96% on 2 L. HEENT: Conjunctivae normal. NECK: No jugular venous distention. CARDIOVASCULAR SYSTEM: S1, S2 muffled. RESPIRATORY SYSTEM: Breath sounds diminished at the bases. Bilateral scattered rhonchi and crackles. ABDOMEN: Soft, non-tender. No mass palpable. LEGS: No edema. No swelling. NERVOUS SYSTEM: Higher functions as mentioned earlier. Moves all 4 limbs. No focal motor or sensory deficit. LYMPHATICS: No lymph node palpable in neck, axillae or groin. SKIN: No ulcer, rash, bleeding. JOINTS: No active deforming arthropathy. LABS: WBC 14.9, hemoglobin 12.4. Sodium 130, creatinine 1.26. ASSESSMENT: 1. Bronchial asthma, acute exacerbation, with acute purulent tracheobronchitis. 2. Severe hypotension, possibly secondary to hypovolemia and dehydration secondary to diarrhea. 3. Possible acute diarrhea secondary to Clostridium difficile colitis or antibiotic- induced diarrhea, on empiric vancomycin. 4. Hyponatremia. 5. Elevated creatinine with mild acute renal failure, possibly prerenal. 6. Elevated lactic acid. 7. Increased white count, possibly reactive in nature. 8. History of recent back surgery. 9. History of asthma. 10.History of gastroesophageal reflux disease. 11.Hypertension. 12.Hyperlipidemia. 13.History of pneumonia. 14.History of abdominal aortic aneurysm. 15.History of chronic back pain. 16.History of nicotine dependence, continued ongoing. 17.History of back surgery and degenerative joint disease. 18.Gait dysfunction. RECOMMENDATIONS AND DISCUSSION: I recommend to continue current medications, continue with the monitoring, symptomatic treatment. Otherwise at this time I would continue with p.o. vancomycin. Continue with IV steroids. Continue with the bronchodilators. Closely monitor with multiple consultants, including Infectious Disease and Surgery. Guarded prognosis. Further recommendations to follow. Cultures are pending at this time. MMODL / IJN: [id number] /
[2018-12-01 20:23] LABS: Glucose,Whole Blood 156 mg/dL (75-99)
[2018-12-01] MEDS: ATORVASTATIN 10 MG TAB PO SCH (20:33)
[2018-12-01] MEDS: LORATADINE 10 MG TAB PO SCH (20:33)
--- NOTE | 2018-12-01 21:45 | P.CONS ---
History of Present Illness - Reason for Consult Consult date: 12/01/18 - Chief Complaint weakness - History of Present Illness 73-year-old male was recently discharged from hospital where he was assessed for a significant change of the status after his extensive lumbar spine surgery performed at an outside hospital. During the recent hospital stay he was complaining of difficulties with abdominal discomfort and diarrhea. Over he started to feel better, stools were improving slightly before his discharge, he was having no significant melena or hematochezia, his appetite improved and he simply wanted to go home. Further evaluations were requested as an outpatient including a stool for C. diff toxin if he had evidence of diarrhea. The patient had a computed tomography scan revealed evidence of the dilated colon and concerns for potential colitis whether it was ischemic, obstructive or infection was not clear but the patient was not complaining of any significant symptoms in consequently metronidazole was provided and the patient was to have follow-up. At home the patient rapidly worsened. He continued to have weakness to lower extremities are supposedly some blood in his stool and felt very poorly because he presents back to the emergency center and subsequently has been admitted. He's been seen by the surgeon with concerns to ileus based on his prior imaging studies in further computed tomography scan has been requested. Patient relates he feels poorly Review of Systems HEENT:Denies headache or acute visual change. Denies sinus or mouth discomforts. Denies neck stiffness or pain. Denies significant oral cavity pain. Denies difficulty on swallowing. Lungs: Denies significant shortness of breath, cough, sputum production, or hemoptysis. Cardiovascular: Denies significant shortness of breath, chest pain, chest wall pain, orthopnea, dyspnea on exertion, syncope Gastrointestinal:Denies nausea, vomiting, has had some loose stool and he was concerned about blood in stool Musculoskeletal: Back pain improved. Skin: Denies new rash or lesions. No new ulcers or wounds are related.. Neuro: Denies headache or visual change. Denies any new onset weakness or difficulty with ambulation. Denies falls or seizures. Psychiatric:Denies anxiety or depression. 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 History of Any Multi-Drug Resistant Organisms: None Reported Past Surgical History: Appendectomy, Back Surgery, Cholecystectomy, Tonsillecto my Additional Past Surgical History / Comment(s): 11/16/18 low back surgery-d iscectomy/replaced vertebra/spacer and fusion with rodding at [facility], colonoscopy with benign polyp. Past Anesthesia/Blood Transfusion Reactions: No Reported Reaction Past Psychological History: No Psychological Hx Reported Additional Psychological History / Comment(s): Pt resides with his spouse. He is using a cane or walker to ambulate. He has a nebulizer. He has not been able to drive recently d/t recent back surgery, his spouse drives. Smoking Status: Current every day smoker Past Alcohol Use History: Rare Additional Past Alcohol Use History / Comment(s): Pt started smoking in 1957 and smokes 3/4-1 ppd. Past Drug Use History: None Reported - Past Family History Father Family Medical History: Cancer Additional Family Medical History / Comment(s): Father of CCL at the age of 87yrs. Mother Family Medical History: Cancer, Myocardial Infarction ([place]) Additional Family Medical History / Comment(s): Mother had cervical cancer. She of a [place] at the age of 64yrs. Medications and Allergies Home Medications and Allergies Comment(s): Current Medications Albuterol/Ipratropium (Duoneb 0.5 Mg-3 Mg/3 Ml Soln) 3 ml INHALATION RT-QID PRN PRN Reason: Shortness Of Breath Or Wheezing Albuterol/Ipratropium (Duoneb 0.5 Mg-3 Mg/3 Ml Soln) 3 ml INHALATION RT-QID [facility] Last Admin: 12/01/18 19:58 Dose: 3 ml Documented by: Alprazolam (Xanax) 0.5 mg PO Q8H PRN PRN Reason: Anxiety Atorvastatin Calcium (Lipitor) 10 mg PO HS [facility] Last Admin: 12/01/18 20:33 Dose: 10 mg Documented by: Benzonatate (Tessalon Perles) 200 mg PO TID PRN PRN Reason: Cough Budesonide (Pulmicort) 1 mg INHALATION RT-BID [facility] Last Admin: 12/01/18 19:58 Dose: 1 mg Documented by: Ramos Syrup (Ramos Syrup) 5 ml PO Q6H PRN PRN Reason: TO FLAVOR VANCOMYCIN IF DESIRE Last Admin: 12/01/18 17:38 Dose: 5 ml Documented by: Cyclobenzaprine HCl (Flexeril) 10 mg PO TID PRN PRN Reason: Muscle Spasm Enoxaparin Sodium (Lovenox) 40 mg SQ DAILY [facility] Last Admin: 12/01/18 07:42 Dose: 40 mg Documented by: Fluticasone Propionate (Flonase Nasal [place]) 1 spray EA NOSTRIL BID [facility] Last Admin: 12/01/18 20:33 Dose: 1 spray Documented by: Formoterol Fumarate (Perforomist) 20 mcg INHALATION RT-BID [facility] Last Admin: 12/01/18 19:58 Dose: 20 mcg Documented by: Insulin Aspart (Novolog) 0 unit SQ ACHS [facility]; Protocol Last Admin: 12/01/18 20:33 Dose: 1 unit Documented by: Ipratropium [place] (Atrovent Nebulized) 0.5 mg INHALATION RT-QID PRN PRN Reason: Shortness Of Breath Loratadine (Claritin) 10 mg PO HS [facility] Last Admin: 12/01/18 20:33 Dose: 10 mg Documented by: Methylprednisolone Sodium Succinate (Solu-Medrol) 60 mg IV Q6HR [facility] Last Admin: 12/01/18 17:38 Dose: 60 mg Documented by: Morphine Sulfate (Morphine Sulfate (Inj)) 4 mg IVP Q4HR PRN PRN Reason: Pain Oxycodone HCl (Oxyir) 5 mg PO Q6H PRN PRN Reason: Pain Pantoprazole Sodium (Protonix) 40 mg PO DAILY [facility] Vancomycin HCl (Vancomycin Oral Solution) 250 mg PO Q6HR [facility] Last Admin: 12/01/18 17:39 Dose: 250 mg Documented by: Home Medications Medication Instructions Recorded Confirmed Type ALPRAZolam [Xanax] 0.5 mg PO Q8H PRN 11/24/18 11/30/18 History Albuterol Inhaler [Ventolin Hfa 1 - 2 puff INHALATION RT-Q4H PRN 11/24/18 11/30/18 History Inhaler] Albuterol Nebulized [Ventolin 2.5 mg INHALATION RT-QID PRN 11/24/18 11/30/18 History Nebulized] Benzonatate [Tessalon Perles] 200 mg PO TID PRN 11/24/18 11/30/18 History Cyclobenzaprine [Flexeril] 10 mg PO TID PRN 11/24/18 11/30/18 History Famotidine [Pepcid] 20 mg PO DAILY PRN 11/24/18 11/30/18 History Fluticasone Nasal [place] [Flonase 1 spray EA NOSTRIL BID 11/24/18 11/30/18 History Nasal [place]] Ipratropium Nebulized [Atrovent 0.5 mg INHALATION RT-QID PRN 11/24/18 11/30/18 History Nebulized 0.2 MG/ML] Loratadine [Claritin] 10 mg PO HS 11/24/18 11/30/18 History Sennosides/Docusate Sodium 2 tab PO HS PRN 11/24/18 11/30/18 History [Senna-S Laxative Tablet] Simvastatin [Zocor] 20 mg PO HS 11/24/18 11/30/18 History oxyCODONE HCL [OxyIR] 5 mg PO Q6H PRN 11/24/18 11/30/18 History metroNIDAZOLE [Flagyl] 500 mg PO TID #21 tab 11/25/18 11/30/18 Rx Allergies Allergy/AdvReac Type Severity Reaction Status Date / Time No Known Allergies Allergy Verified 11/30/18 17:05 Physical Exam Vitals: Vital Signs Temp Pulse Pulse Resp BP Pulse Ox 12/01/18 20:27 106 H 12/01/18 20:18 108 H 12/01/18 20:00 107 H 97 12/01/18 19:00 97.7 F 107 H 19 107/61 96 12/01/18 15:45 106 H 12/01/18 15:33 100 12/01/18 14:17 97.7 F 94 15 99/46 96 12/01/18 12:00 110 H 18 12/01/18 08:58 108 H 12/01/18 08:46 104 H 12/01/18 08:31 104 H 12/01/18 07:27 97.6 F 83 15 102/59 95 12/01/18 00:58 98.0 F 94 18 98/55 96 11/30/18 22:15 98.7 F 117 H 20 98/53 96 Intake and Output 12/01/18 12/01/18 12/01/18 06:59 14:59 22:59 Intake Total 480 500 180 Balance 480 500 180 Intake: Oral 480 500 180 Other: Voiding Method Urinal Bedside Commode Urinal # Voids 2 3 # Bowel Movements 3 HEENT: Anicteric conjunctiva are pink and moist nasal mucosa grossly intact without significant lesions, there is no thrush. Neck: The neck is supple without significant lymphadenopathy or thyromegaly. Lungs: Good bilateral air entry without significant crackles or wheezing. There is no significant bronchial sounds. There is no egophony or dullness. Heart: Regular rate and rhythm with an audible S1-S2, no S3 no S4. There is no significant murmur click or rub, PMI was nondisplaced. Abdomen: Positive bowel sounds soft and nontender without palpable masses or organomegaly. There was no guarding or rebound. Extremities: The upper extremities have excellent pulses they are symmetric, no significant petechiae or telangiectasia. No splinter hemorrhages were noted. Lower extremities do have some bilateral edema no open ulcerations are seen Back has evidence of the recent surgical intervention no drainage is noted, no erythema or significant point tenderness Neuro: Awake alert oriented to person place and time. There are no acute new gross focal sensory motor deficits. Results CBC & Chem 7: 12/01/18 06:33 12/01/18 06:33 Labs: Abnormal Lab Results - Last 24 Hours (Table) 11/30/18 11/30/18 12/01/18 Range/Units 11:34 22:12 06:33 WBC 14.9 H (3.8-10.6) k/uL RBC 3.84 L (4.30-5.90) m/uL Hgb 12.4 L (13.0-17.5) gm/dL Hct 37.9 L (39.0-53.0) % Neutrophils # 13.9 H (1.3-7.7) k/uL Lymphocytes # 0.4 L (1.0-4.8) k/uL Sodium (137-145) mmol/L Carbon Dioxide (22-30) mmol/L BUN (9-20) mg/dL Creatinine (0.66-1.25) mg/dL Glucose (74-99) mg/dL POC Glucose (mg/dL) 169 H (75-99) mg/dL Calcium (8.4-10.2) mg/dL Urine Protein Trace H (Negative) Urine Blood Small H (Negative) Urine Bacteria Rare H (None) /hpf Hyaline Casts 4 H (0-2) /lpf 12/01/18 12/01/18 12/01/18 Range/Units 06:33 07:06 12:01 WBC (3.8-10.6) k/uL RBC (4.30-5.90) m/uL Hgb (13.0-17.5) gm/dL Hct (39.0-53.0) % Neutrophils # (1.3-7.7) k/uL Lymphocytes # (1.0-4.8) k/uL Sodium 130 L (137-145) mmol/L Carbon Dioxide 21 L (22-30) mmol/L BUN 68 H (9-20) mg/dL Creatinine 1.26 H (0.66-1.25) mg/dL Glucose 139 H (74-99) mg/dL POC Glucose (mg/dL) 143 H 173 H (75-99) mg/dL Calcium 7.6 L (8.4-10.2) mg/dL Urine Protein (Negative) Urine Blood (Negative) Urine Bacteria (None) /hpf Hyaline Casts (0-2) /lpf 12/01/18 12/01/18 Range/Units 17:04 20:22 WBC (3.8-10.6) k/uL RBC (4.30-5.90) m/uL Hgb (13.0-17.5) gm/dL Hct (39.0-53.0) % Neutrophils # (1.3-7.7) k/uL Lymphocytes # (1.0-4.8) k/uL Sodium (137-145) mmol/L Carbon Dioxide (22-30) mmol/L BUN (9-20) mg/dL Creatinine (0.66-1.25) mg/dL Glucose (74-99) mg/dL POC Glucose (mg/dL) 143 H 156 H (75-99) mg/dL Calcium (8.4-10.2) mg/dL Urine Protein (Negative) Urine Blood (Negative) Urine Bacteria (None) /hpf Hyaline Casts (0-2) /lpf Laboratory Results WBC 14.9 k/uL (3.8-10.6) H 12/01/18 06:33 RBC 3.84 m/uL (4.30-5.90) L 12/01/18 06:33 Hgb 12.4 gm/dL (13.0-17.5) L 12/01/18 06:33 Hct 37.9 % (39.0-53.0) L 12/01/18 06:33 MCV 98.9 fL (80.0-100.0) 12/01/18 06:33 MCH 32.3 pg (25.0-35.0) 12/01/18 06:33 MCHC 32.7 g/dL (31.0-37.0) 12/01/18 06:33 RDW 14.1 % (11.5-15.5) 12/01/18 06:33 Plt Count 393 k/uL (150-450) 12/01/18 06:33 Neutrophils % 93 % 12/01/18 06:33 Lymphocytes % 3 % 12/01/18 06:33 Monocytes % 3 % 12/01/18 06:33 Eosinophils % 0 % 12/01/18 06:33 Basophils % 1 % 12/01/18 06:33 Neutrophils # 13.9 k/uL (1.3-7.7) H 12/01/18 06:33 Lymphocytes # 0.4 k/uL (1.0-4.8) L 12/01/18 06:33 Monocytes # 0.4 k/uL (0-1.0) 12/01/18 06:33 Eosinophils # 0.0 k/uL (0-0.7) 12/01/18 06:33 Basophils # 0.1 k/uL (0-0.2) 12/01/18 06:33 Hypochromasia Moderate 11/30/18 17:50 Macrocytosis Slight 11/30/18 17:50 PT 10.5 sec (9.0-12.0) 11/30/18 17:50 INR 1.0 (<1.2) 11/30/18 17:50 APTT 23.4 sec (22.0-30.0) 11/30/18 17:50 VBG pH 7.39 (7.31-7.41) 11/30/18 17:50 VBG pCO2 38 mmHg (37-51) 11/30/18 17:50 VBG HCO3 22 mmol/L (24-28) L 11/30/18 17:50 Sodium 130 mmol/L (137-145) L 12/01/18 06:33 Potassium 4.6 mmol/L (3.5-5.1) 12/01/18 06:33 Chloride 101 mmol/L (98-107) 12/01/18 06:33 Carbon Dioxide 21 mmol/L (22-30) L 12/01/18 06:33 Anion Gap 8 mmol/L 12/01/18 06:33 BUN 68 mg/dL (9-20) H 12/01/18 06:33 Creatinine 1.26 mg/dL (0.66-1.25) H 12/01/18 06:33 Est GFR (CKD-EPI)AfAm 65 (>60 ml/min/1.73 sqM) 12/01/18 06:33 Est GFR (CKD-EPI)NonAf 56 (>60 ml/min/1.73 sqM) 12/01/18 06:33 Glucose 139 mg/dL (74-99) H 12/01/18 06:33 POC Glucose (mg/dL) 156 mg/dL (75-99) H 12/01/18 20:22 POC Glu Languages And Literature Instructor RONY Baldemar Cochran 12/01/18 20:22 Lactic Ac Sepsis Rflx Y 11/30/18 18:28 Plasma Lactic Acid [place] 2.0 mmol/L (0.7-2.0) 11/30/18 22:00 Calcium 7.6 mg/dL (8.4-10.2) L 12/01/18 06:33 Phosphorus 4.2 mg/dL (2.5-4.5) 11/30/18 17:50 Magnesium 3.1 mg/dL (1.6-2.3) H 11/30/18 17:50 Total Bilirubin 0.7 mg/dL (0.2-1.3) 11/30/18 17:50 AST 38 U/L (17-59) 11/30/18 17:50 ALT 38 U/L (21-72) 11/30/18 17:50 Alkaline Phosphatase 113 U/L (38-126) 11/30/18 17:50 Creatine Kinase 23 U/L (55-170) L 11/30/18 17:50 Troponin I <0.012 ng/mL (0.000-0.034) 11/30/18 17:50 NT-Pro-B Natriuret Pep 1090 pg/mL 11/30/18 17:50 Total Protein 4.7 g/dL (6.3-8.2) L 11/30/18 17:50 Albumin 2.3 g/dL (3.5-5.0) L 11/30/18 17:50 Cortisol 41 ug/dL 12/01/18 06:33 Urine Color Yellow 11/30/18 20:32 Urine Appearance Clear (Clear) 11/30/18 20:32 Urine pH 5.5 (5.0-8.0) 11/30/18 20:32 Ur Specific [place] 1.019 (1.001-1.035) 11/30/18 20:32 Urine Protein Trace (Negative) H 11/30/18 20:32 Urine Glucose (UA) Negative (Negative) 11/30/18 20:32 Urine Ketones Negative (Negative) 11/30/18 20:32 Urine Blood Small (Negative) H 11/30/18 20:32 Urine Nitrite Negative (Negative) 11/30/18 20:32 Urine Bilirubin Negative (Negative) 11/30/18 20:32 Urine Urobilinogen <2.0 mg/dL (<2.0) 11/30/18 20:32 Ur Leukocyte Esterase Trace (Negative) H 11/30/18 20:32 Urine RBC 1 /hpf (0-5) 11/30/18 11:34 Urine WBC 1 /hpf (0-5) 11/30/18 20:32 Ur Squamous Epith Cells <1 /hpf (0-4) 11/30/18 11:34 Urine Bacteria Rare /hpf (None) H 11/30/18 11:34 Hyaline Casts 6 /lpf (0-2) H 11/30/18 20:32 Granular Casts 3 /lpf (0) 11/30/18 20:32 Urine Mucus Rare /hpf (None) H 11/30/18 20:32 Blood Type O Positive 11/30/18 17:50 Blood Type Confirm O Positive 11/30/18 19:40 Blood Type Recheck No Previous Record 11/30/18 17:50 Bld Type Recheck Status CABO Indicated 11/30/18 17:50 Antibody Screen NEGATIVE 11/30/18 17:50 Spec Expiration Date 12/03/2018234911/30/18 17:50 Laboratory Results WBC 14.9 k/uL (3.8-10.6) H 12/01/18 06:33 RBC 3.84 m/uL (4.30-5.90) L 12/01/18 06:33 Hgb 12.4 gm/dL (13.0-17.5) L 12/01/18 06:33 Hct 37.9 % (39.0-53.0) L 12/01/18 06:33 MCV 98.9 fL (80.0-100.0) 12/01/18 06:33 MCH 32.3 pg (25.0-35.0) 12/01/18 06:33 MCHC 32.7 g/dL (31.0-37.0) 12/01/18 06:33 RDW 14.1 % (11.5-15.5) 12/01/18 06:33 Plt Count 393 k/uL (150-450) 12/01/18 06:33 Neutrophils % 93 % 12/01/18 06:33 Lymphocytes % 3 % 12/01/18 06:33 Monocytes % 3 % 12/01/18 06:33 Eosinophils % 0 % 12/01/18 06:33 Basophils % 1 % 12/01/18 06:33 Neutrophils # 13.9 k/uL (1.3-7.7) H 12/01/18 06:33 Lymphocytes # 0.4 k/uL (1.0-4.8) L 12/01/18 06:33 Monocytes # 0.4 k/uL (0-1.0) 12/01/18 06:33 Eosinophils # 0.0 k/uL (0-0.7) 12/01/18 06:33 Basophils # 0.1 k/uL (0-0.2) 12/01/18 06:33 Hypochromasia Moderate 11/30/18 17:50 Macrocytosis Slight 11/30/18 17:50 PT 10.5 sec (9.0-12.0) 11/30/18 17:50 INR 1.0 (<1.2) 11/30/18 17:50 APTT 23.4 sec (22.0-30.0) 11/30/18 17:50 VBG pH 7.39 (7.31-7.41) 11/30/18 17:50 VBG pCO2 38 mmHg (37-51) 11/30/18 17:50 VBG HCO3 22 mmol/L (24-28) L 11/30/18 17:50 Sodium 130 mmol/L (137-145) L 12/01/18 06:33 Potassium 4.6 mmol/L (3.5-5.1) 12/01/18 06:33 Chloride 101 mmol/L (98-107) 12/01/18 06:33 Carbon Dioxide 21 mmol/L (22-30) L 12/01/18 06:33 Anion Gap 8 mmol/L 12/01/18 06:33 BUN 68 mg/dL (9-20) H 12/01/18 06:33 Creatinine 1.26 mg/dL (0.66-1.25) H 12/01/18 06:33 Est GFR (CKD-EPI)AfAm 65 (>60 ml/min/1.73 sqM) 12/01/18 06:33 Est GFR (CKD-EPI)NonAf 56 (>60 ml/min/1.73 sqM) 12/01/18 06:33 Glucose 139 mg/dL (74-99) H 12/01/18 06:33 POC Glucose (mg/dL) 156 mg/dL (75-99) H 12/01/18 20:22 POC Glu Languages And Literature Instructor Baldemar Oliva 12/01/18 20:22 Lactic Ac Sepsis Rflx Y 11/30/18 18:28 Plasma Lactic Acid [place] 2.0 mmol/L (0.7-2.0) 11/30/18 22:00 Calcium 7.6 mg/dL (8.4-10.2) L 12/01/18 06:33 Phosphorus 4.2 mg/dL (2.5-4.5) 11/30/18 17:50 Magnesium 3.1 mg/dL (1.6-2.3) H 11/30/18 17:50 Total Bilirubin 0.7 mg/dL (0.2-1.3) 11/30/18 17:50 AST 38 U/L (17-59) 11/30/18 17:50 ALT 38 U/L (21-72) 11/30/18 17:50 Alkaline Phosphatase 113 U/L (38-126) 11/30/18 17:50 Creatine Kinase 23 U/L (55-170) L 11/30/18 17:50 Troponin I <0.012 ng/mL (0.000-0.034) 11/30/18 17:50 NT-Pro-B Natriuret Pep 1090 pg/mL 11/30/18 17:50 Total Protein 4.7 g/dL (6.3-8.2) L 11/30/18 17:50 Albumin 2.3 g/dL (3.5-5.0) L 11/30/18 17:50 Cortisol 41 ug/dL 12/01/18 06:33 Urine Color Yellow 11/30/18 20:32 Urine Appearance Clear (Clear) 11/30/18 20:32 Urine pH 5.5 (5.0-8.0) 11/30/18 20:32 Ur Specific [place] 1.019 (1.001-1.035) 11/30/18 20:32 Urine Protein Trace (Negative) H 11/30/18 20:32 Urine Glucose (UA) Negative (Negative) 11/30/18 20:32 Urine Ketones Negative (Negative) 11/30/18 20:32 Urine Blood Small (Negative) H 11/30/18 20:32 Urine Nitrite Negative (Negative) 11/30/18 20:32 Urine Bilirubin Negative (Negative) 11/30/18 20:32 Urine Urobilinogen <2.0 mg/dL (<2.0) 11/30/18 20:32 Ur Leukocyte Esterase Trace (Negative) H 11/30/18 20:32 Urine RBC 1 /hpf (0-5) 11/30/18 11:34 Urine WBC 1 /hpf (0-5) 11/30/18 20:32 Ur Squamous Epith Cells <1 /hpf (0-4) 11/30/18 11:34 Urine Bacteria Rare /hpf (None) H 11/30/18 11:34 Hyaline Casts 6 /lpf (0-2) H 11/30/18 20:32 Granular Casts 3 /lpf (0) 11/30/18 20:32 Urine Mucus Rare /hpf (None) H 11/30/18 20:32 Blood Type O Positive 11/30/18 17:50 Blood Type Confirm O Positive 11/30/18 19:40 Blood Type Recheck No Previous Record 11/30/18 17:50 Bld Type Recheck Status CABO Indicated 11/30/18 17:50 Antibody Screen NEGATIVE 11/30/18 17:50 Spec Expiration Date 12/03/2018234911/30/18 17:50 Comments: Acute abdominal series without evidence of free air, however is evidence of ileus and possibly ischemic bowel Chest x-ray with atelectasis versus infiltrate left lower lobe Duplex without evidence of DVT either lower extremity Assessment and Plan (1) Hypotension Current Visit: Yes Status: Acute Code(s): I95.9 - HYPOTENSION, UNSPECIFIED SNOMED Code(s): 83923029 (2) Abnormal abdominal CT scan Narrative/Plan: 73-year-old male who was recently hospitalized with difficulties with lower extremity edema and discomfort all occurring after his back surgery. There was evidence of some leukocytosis but he did not have a lot of other symptoms. The patient as noted had the abnormal computed tomography scan however he was insistent on discharge to home. Given that he had some change of his bowel habit, and there was evidence of possible colitis on the computed tomography scan the patient was placed on oral metronidazole and stool testing for C. diff toxin was requested if he had ongoing diarrhea. The patient has now been admitted feeling quite poorly. There is no evidence of any deep venous thrombosis in either lower extremity Abdominal x-ray continues to show abnormality likely has an ileus and there maybe be an ischemic component. Surgical consult has been requested. While stool studies are in processes and placed on oral vancomycin therapy. However with concern for the possibility of ischemic colitis with ongoing leukocytosis prior to the start of current steroid therapy would initiate Unasyn for now until there is further data. Current Visit: No Status: Acute Code(s): R93.5 - ABN FINDINGS ON DX IMAGING OF ABD REGIONS, INC RETROPERITON SNOMED Code(s): 71943007046276205
[2018-12-02] MEDS: methylPREDNISolone SOD SUCCI 125 MG/2 ML VIAL IV SCH ×5 (00:09→23:38)
[2018-12-02] MEDS: AMPICILLIN-SULBACTAM 3 GM in SODIUM CHLORIDE 0.9% 100 ML IVPB SCH ×5 (00:09→23:37)
[2018-12-02] MEDS: CHERRY FLAVOR 60 ML BOTTLE PO PRN ×5 (00:10→23:39)
[2018-12-02] MEDS: VANCOMYCIN ORAL SOLUTION 250 MG/5 ML BOTTLE PO SCH ×5 (00:16→23:40)
[2018-12-02] MEDS ORDERED: MELATONIN 3 MG TABLET PO PRN (01:07)
[2018-12-02 06:58] LABS: Glucose,Whole Blood 196 mg/dL (75-99)
[2018-12-02] MEDS: FORMOTEROL FUMARATE 20 MCG/2 ML NEBU INHALATION SCH ×2 (07:46→20:32)
[2018-12-02] MEDS: BUDESONIDE 1 MG/2 ML NEBU INHALATION SCH ×2 (07:46→20:30)
[2018-12-02] MEDS: IPRATROPIUM-ALBUTEROL 3 ML NEB INHALATION SCH ×4 (07:47→20:30)
[2018-12-02] MEDS: ENOXAPARIN 40 MG/0.4 ML SYRINGE SQ SCH (07:52)
[2018-12-02] MEDS: INSULIN ASPART (NovoLOG) 100 UNIT/ML VIAL SQ SCH ×4 (07:52→20:52)
[2018-12-02] MEDS: FLUTICASONE 50MCG/SPRAY NASAL 16GM EA NOSTRIL SCH ×2 (07:52→20:53)
[2018-12-02] MEDS: PANTOPRAZOLE 40 MG TABLET PO SCH (07:53)
[2018-12-02 08:09] LABS: Basophils # (A) 0.1 k/uL (0-0.2); Basophils % (A) 1 %; Eosinophils % (A) 0 %; HCT 38.3 % (39.0-53.0); HGB 12.4 gm/dL (13.0-17.5); Lymphocytes % (A) 5 %; MCH 32.7 pg (25.0-35.0); MCHC 32.5 g/dL (31.0-37.0); MCV 100.7 fL (80.0-100.0); Macrocytosis Slight; Mean Platelet Volume 8.6; Monocytes # (A) 0.7 k/uL (0-1.0); Monocytes % (A) 4 %; Neutrophils # (A) 17.3 k/uL (1.3-7.7); Neutrophils % (A) 90 %; Platelet Count 510 k/uL (150-450); RDW 15.2 % (11.5-15.5); WBC 19.3 k/uL (3.8-10.6)
[2018-12-02 08:17] LABS: Large Platelets Present
[2018-12-02 08:18] LABS: Poikilocytosis (M) Present
[2018-12-02 09:00] LABS: Calcium 7.8 mg/dL (8.4-10.2); Potassium 4.6 mmol/L (3.5-5.1)
--- NOTE | 2018-12-02 12:39 | P.PN ---
Subjective Progress Note Date: 12/02/18 CHIEF COMPLAINT: ileus HISTORY OF PRESENT ILLNESS: patient examined this morning at the bedside. He denies abdominal pain. Denies nausea or vomiting. Tolerating diet. Reports diarrhea has improved. 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 Distended large bowel with fluid levels consistent with ileus. No definite intestinal ischemia. No bowel obstruction. Minimal abdominal ascites. PHYSICAL EXAM: VITAL SIGNS: Reviewed. GENERAL: Well-developed in no acute distress. HEENT: No sclera icterus. Extraocular movements grossly intact. Moist buccal mucosa. Head is atraumatic, normocephalic. ABDOMEN: Soft. Mildly distended. Nontender. Positive bowel sounds. NEUROLOGIC: Alert and oriented. Cranial nerves II through XII grossly intact. ASSESSMENT: 1. Diarrhea x 2 days, without additional abdominal complaints 2. Ileus PLAN: Diet as tolerated No surgical intervention Management of additional CT findings per Dr. Barnett Stable for discharge from a surgical standpoint Patient may follow up with Dr. Gamble outpatient for colonoscopy Nurse practitioner note has been reviewed by physician. Signing provider agrees with the documented findings, assessment, and plan of care. Objective - Vital Signs Vital signs: Vital Signs Temp 97.6 F 12/02/18 07:45 Pulse 92 12/02/18 12:09 Resp 16 12/02/18 07:45 BP 112/65 12/02/18 07:45 Pulse Ox 96 12/02/18 07:47 Intake & Output 12/01/18 12/02/18 12/02/18 18:59 06:59 18:59 Intake Total 680 Output Total 300 Balance 680 -300 Intake: Oral 680 Output: Urine 300 Other: Voiding Method Bedside Commode Bedside Commode Urinal Urinal # Voids 3 1 - Labs CBC & Chem 7: 12/02/18 07:24 12/02/18 07:24 Labs: Abnormal Lab Results - Last 24 Hours (Table) 12/01/18 12/01/18 12/02/18 Range/Units 17:04 20:22 06:57 WBC (3.8-10.6) k/uL RBC (4.30-5.90) m/uL Hgb (13.0-17.5) gm/dL Hct (39.0-53.0) % MCV (80.0-100.0) fL Plt Count (150-450) k/uL Neutrophils # (1.3-7.7) k/uL Sodium (137-145) mmol/L Carbon Dioxide (22-30) mmol/L BUN (9-20) mg/dL Glucose (74-99) mg/dL POC Glucose (mg/dL) 143 H 156 H 196 H (75-99) mg/dL Calcium (8.4-10.2) mg/dL 12/02/18 12/02/18 Range/Units 07:24 07:24 WBC 19.3 H (3.8-10.6) k/uL RBC 3.80 L (4.30-5.90) m/uL Hgb 12.4 L (13.0-17.5) gm/dL Hct 38.3 L (39.0-53.0) % MCV 100.7 H (80.0-100.0) fL Plt Count 510 H (150-450) k/uL Neutrophils # 17.3 H (1.3-7.7) k/uL Sodium 133 L (137-145) mmol/L Carbon Dioxide 20 L (22-30) mmol/L BUN 54 H (9-20) mg/dL Glucose 136 H (74-99) mg/dL POC Glucose (mg/dL) (75-99) mg/dL Calcium 7.8 L (8.4-10.2) mg/dL
[2018-12-02 12:40] LABS: Glucose,Whole Blood 162 mg/dL (75-99)
--- NOTE | 2018-12-02 13:08 | CDI ---
Documentation Clarification Form Date: 12/02/2018 12:54:17 PM From: Taya Hinds Phone: '[phone] Admit Date: 11/30/2018 7:54:00 PM Patient Name: Roberto Dawson Visit Number: [id number] Discharge Date: ATTENTION: The Clinical Documentation Specialists (CDI) and [facility] Coding Staff appreciate your assistance in clarifying documentation. Please respond to the clarification below the line at the bottom and electronically sign. The CDI & [facility] Coding staff will review the response and follow-up if needed. Please note: Queries are made part of the Legal Health Record. If you have any questions, please contact the author of this message via ITS. Dr. Jadon Barnett Elevated Lactic Acid is documented in your H & P History/Risk Factors: 73-year-old male presents to the ED with for progressive weakness recent admission. Medical History Back Surgery; HTN; Hyperlipidemia; AAA; Chronic Back Pain Clinical indicators: Plasma Lactic Acid 2.1 repeat 2.0 Abnormal (CDI insert radiology study/ laboratory result/pathology report): Treatment: 2L 0.9ns ivfl bolus then at 100cc/hr Clinical significance of diagnostic testing and treatment CANNOT be assumed or coded without physician documentation of significance if any. Please clarify what abnormal laboratory signifies: * Lactic Acidosis * Unable to determine * Other, please specify (Last Revision: December 2016) Unable to determine MTDD
--- NOTE | 2018-12-02 15:33 | P.CONS ---
History of Present Illness - Reason for Consult Consult date: 12/02/18 Suspicions for malignancy Requesting physician: Jadon Barnett - Chief Complaint Hypotension, tachycardia, suspicions for sepsis - History of Present Illness Mr. Valerio is a very pleasant 73-year-old male patient of primary care physician Dr. Varma who was sent from PCP office due to suspicions for sepsis. Patient was hypotensive and tachycardic. He recently had rather extensive back surgery, he still has the justo, these were due to be removed today. Patient denies a personal history of malignancy. Patient is up-to-date on his age appropriate cancer screenings. Patient has had a 100 pound weight loss over probably the last 5 years. Patient attributes some of it to a period of depression after of a family member, last year he had dentures placed which he reports distorted taste of food. Patient is denying any new or unusual pain, the back pain he was having is resolved. He denies fevers, chills, night sweats, oral irritation, shortness of breath, palpitations, difficulty swallowing, indigestion, heartburn, upset stomach, nausea, vomiting, abdominal pain, cramping, acute changes in bowel or bladder habits, he has had lower extremity swelling intermittently, no known adenopathy, lumps or bumps. 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 He states he feels very well. 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 History of Any Multi-Drug Resistant Organisms: None Reported Past Surgical History: Appendectomy, Back Surgery, Cholecystectomy, Tonsillectomy Additional Past Surgical History / Comment(s): 11/16/18 low back surgery- discectomy/replaced vertebra/spacer and fusion with rodding at [facility], colonoscopy with benign polyp. Past Anesthesia/Blood Transfusion Reactions: No Reported Reaction Past Psychological History: No Psychological Hx Reported Additional Psychological History / Comment(s): Pt resides with his spouse. He is using a cane or walker to ambulate. He has a nebulizer. He has not been able to drive recently d/t recent back surgery, his spouse drives. Smoking Status: Current every day smoker Past Alcohol Use History: Rare Additional Past Alcohol Use History / Comment(s): Pt started smoking in 1958 and smokes 3/4-1 ppd. Past Drug Use History: None Reported - Past Family History Father Family Medical History: Cancer Additional Family Medical History / Comment(s): Father of CCL at the age of 87yrs. Mother Family Medical History: Cancer, Myocardial Infarction ([place]) Additional Family Medical History / Comment(s): Mother had cervical cancer. She of a [place] at the age of 64yrs. Medications and Allergies Home Medications Medication Instructions Recorded Confirmed Type ALPRAZolam [Xanax] 0.5 mg PO Q8H PRN 11/24/18 11/30/18 History Albuterol Inhaler [Ventolin Hfa 1 - 2 puff INHALATION RT-Q4H PRN 11/24/18 11/30/18 History Inhaler] Albuterol Nebulized [Ventolin 2.5 mg INHALATION RT-QID PRN 11/24/18 11/30/18 History Nebulized] Benzonatate [Tessalon Perles] 200 mg PO TID PRN 11/24/18 11/30/18 History Cyclobenzaprine [Flexeril] 10 mg PO TID PRN 11/24/18 11/30/18 History Famotidine [Pepcid] 20 mg PO DAILY PRN 11/24/18 11/30/18 History Fluticasone Nasal [place] [Flonase 1 spray EA NOSTRIL BID 11/24/18 11/30/18 History Nasal [place]] Ipratropium Nebulized [Atrovent 0.5 mg INHALATION RT-QID PRN 11/24/18 11/30/18 History Nebulized 0.2 MG/ML] Loratadine [Claritin] 10 mg PO HS 11/24/18 11/30/18 History Sennosides/Docusate Sodium 2 tab PO HS PRN 11/24/18 11/30/18 History [Senna-S Laxative Tablet] Simvastatin [Zocor] 20 mg PO HS 11/24/18 11/30/18 History oxyCODONE HCL [OxyIR] 5 mg PO Q6H PRN 11/24/18 11/30/18 History metroNIDAZOLE [Flagyl] 500 mg PO TID #21 tab 11/25/18 11/30/18 Rx Allergies Allergy/AdvReac Type Severity Reaction Status Date / Time No Known Allergies Allergy Verified 11/30/18 17:05 Physical Exam Vitals: Vital Signs Temp Pulse Pulse Resp BP Pulse Ox 12/02/18 12:20 92 12/02/18 12:09 92 12/02/18 08:08 91 12/02/18 08:01 90 12/02/18 08:00 90 12/02/18 07:47 92 96 12/02/18 07:45 97.6 F 92 16 112/65 96 12/02/18 01:55 97.7 F 90 17 111/55 97 12/01/18 20:27 106 H 12/01/18 20:18 108 H 12/01/18 20:00 107 H 97 12/01/18 19:00 97.7 F 107 H 19 107/61 96 12/01/18 15:45 106 H 12/01/18 15:33 100 Intake and Output 12/02/18 12/02/18 12/02/18 06:59 14:59 22:59 Intake Total 1000 Balance 1000 Intake: Oral 1000 Other: # Voids 1 3 - Constitutional General appearance: average body habitus, cooperative, no acute distress - EENT Eyes: anicteric sclerae, EOMI, normal appearance ENT: hearing grossly normal, normal oropharynx - Neck Neck: no lymphadenopathy - Respiratory Respiratory: bilateral: diminished - Cardiovascular Rhythm: regular Heart sounds: normal: S1, S2 Abnormal Heart Sounds: no systolic murmur, no diastolic murmur, no rub, no S3 Gallop, no S4 Gallop, no click, no other leg Peripheral Edema: bilateral: 2+ - Gastrointestinal General gastrointestinal: no absent bowel sounds, no decreased bowel sounds, no distended, no hepatomegaly, no hyperactive bowel sounds, normal bowel sounds, no organomegaly, no rigid, no scaphoid, soft, no splenomegaly, no tenderness, no umbilical hernia, no ventral hernia - Neurologic Neurologic: CNII-XII intact - Musculoskeletal Musculoskeletal: strength equal bilaterally - Psychiatric Psychiatric: A&O x's 3, appropriate affect, intact judgment & insight Results CBC & Chem 7: 12/02/18 07:24 12/02/18 07:24 Labs: Abnormal Lab Results - Last 24 Hours (Table) 12/01/18 12/01/18 12/02/18 Range/Units 17:04 20:22 06:57 WBC (3.8-10.6) k/uL RBC (4.30-5.90) m/uL Hgb (13.0-17.5) gm/dL Hct (39.0-53.0) % MCV (80.0-100.0) fL Plt Count (150-450) k/uL Neutrophils # (1.3-7.7) k/uL Sodium (137-145) mmol/L Carbon Dioxide (22-30) mmol/L BUN (9-20) mg/dL Glucose (74-99) mg/dL POC Glucose (mg/dL) 143 H 156 H 196 H (75-99) mg/dL Calcium (8.4-10.2) mg/dL 12/02/18 12/02/18 12/02/18 Range/Units 07:24 07:24 12:37 WBC 19.3 H (3.8-10.6) k/uL RBC 3.80 L (4.30-5.90) m/uL Hgb 12.4 L (13.0-17.5) gm/dL Hct 38.3 L (39.0-53.0) % MCV 100.7 H (80.0-100.0) fL Plt Count 510 H (150-450) k/uL Neutrophils # 17.3 H (1.3-7.7) k/uL Sodium 133 L (137-145) mmol/L Carbon Dioxide 20 L (22-30) mmol/L BUN 54 H (9-20) mg/dL Glucose 136 H (74-99) mg/dL POC Glucose (mg/dL) 162 H (75-99) mg/dL Calcium 7.8 L (8.4-10.2) mg/dL CT scan - abdomen: report reviewed CT scan - pelvis: report reviewed Assessment and Plan (1) Abnormal abdominal CT scan Narrative/Plan: CT report was reviewed with Dr. Rendon. After interview with the patient, he does have quite an arterial vascular history. Would suspect that many of the findings on the report are related to this history. No additional workup at planned inpatient at this time. Pt has multiple provider follow up appts in the next few weeks. Due to the patient's smoking history low-dose CT of the chest would be recommended for lung cancer screening. Current Visit: Yes Status: Acute Priority: Medium Code(s): R93.5 - ABN FINDINGS ON DX IMAGING OF ABD REGIONS, INC RETROPERITON SNOMED Code(s): 26437855869467487 (2) Leukocytosis Narrative/Plan: Left shift noted, overall white count is decreasing. Likely related to recent surgery. Recommend follow-up CBC in 1-2 weeks to insure return to baseline. Current Visit: Yes Status: Acute Priority: Low Code(s): D72.829 - ELEVATED WHITE BLOOD CELL COUNT, UNSPECIFIED SNOMED Code(s): 199780676
--- NOTE | 2018-12-02 15:56 | PN ---
PROGRESS NOTE DATE OF SERVICE: 12/02/2018. This 73-year-old gentleman who was admitted with bronchial asthma, acute exacerbation, and purulent tracheobronchitis and severe hypotension with dehydration and diarrhea is improving significantly. A CT scan of the abdomen and pelvis was done yesterday which showed evidence of a large splenic infarct and also evidence of severe ischemia and infarct involving most of the right kidney and also thrombosis of the infrarenal abdominal aorta. There is arterial flow seen in the right renal vein but distended large bowel with fluid level is also noted. The patient is being closely monitored at this time. A vascular as well as hematology/oncology consultation has been sought. Past medical history reviewed. REVIEW OF SYSTEMS: CARDIOVASCULAR SYSTEM: No angina, palpitations. RESPIRATORY SYSTEM: As mentioned earlier. GI: As mentioned earlier. : No dysuria or retention. NERVOUS SYSTEM: No numbness, weakness. CURRENT MEDICATIONS: Reviewed. They include: 1. DuoNeb q.i.d. and p.r.n. 2. Xanax 0.5 q.8. 3. Unasyn 3 grams IV q.8. 4. Lipitor 10 mg at bedtime. 5. Tessalon Perles. 6. Pulmicort 1 mg b.i.d. 7. Ramos syrup. 8. Flexeril 10 mg t.i.d. 9. Lovenox 40 mg subcutaneously daily. 10.Flonase. 11.Perforomist 20 mg b.i.d. 12.NovoLog. 13.Atrovent. 14.Claritin. 15.Melatonin. 16.Solu-Medrol 60 IV q.6. 17.Morphine sulfate 4 mg IV q.4. 18.Oxy IR 5 mg p.o. q.6 p.r.n. 19.Protonix 40 mg p.o. daily. 20.Vancomycin 250 mg p.o. q.6. PHYSICAL EXAMINATION: Patient is alert and oriented x3. Pulse is 92, blood pressure 112/64, respirations 16, temperature 97.6, pulse ox 96% on room air. HEENT: Conjunctivae normal. Oral mucosa moist. NECK: No jugular venous distention. No carotid bruit. No lymph node enlargement. CARDIOVASCULAR SYSTEM: S1, S2 muffled. No S3. No S4. RESPIRATORY SYSTEM: Breath sounds diminished at the bases. A few scattered rhonchi and crackles. ABDOMEN: Soft, obese. Mild diffuse distention. No guarding. No rigidity. No mass palpable. LEGS: No edema. No swelling. NERVOUS SYSTEM: Higher functions as mentioned earlier. Moves all 4 limbs. No focal motor or sensory deficit. LYMPHATICS: No lymph node palpable in neck, axillae or groin. SKIN: No ulcer, rash, bleeding. JOINTS: No active deforming arthropathy. LABS: WBC 19.3, hemoglobin 12.4. Sodium 133. ASSESSMENT: 1. Bronchial asthma, acute exacerbation, with acute purulent tracheobronchitis, present on admission. 2. Severe hypotension, possibly secondary to hypovolemia and dehydration secondary to diarrhea. 3. Multiple abdominal findings on the CT scan, including thrombosis of the infrarenal abdominal aorta as well as evidence of large splenic infarct and severe ischemia involving the right kidney. 4. Possible mesenteric ischemia. 5. Hyponatremia. 6. Diarrhea; treated empirically with p.o. vancomycin. 7. Elevated creatinine with mild acute renal failure, possibly prerenal acute tubular necrosis. 8. Elevated lactic acid. 9. Increased white count, possibly reactive in nature. 10.History of recent back surgery. 11.History of asthma. 12.History of gastroesophageal reflux disease. 13.Hypertension. 14.Hyperlipidemia. 15.History of pneumonia. 16.History of abdominal aortic aneurysm. 17.History of chronic back pain. 18.History of nicotine dependence, continued ongoing. 19.History of back surgery and degenerative joint disease. 20.History of gait dysfunction. RECOMMENDATIONS AND DISCUSSION: I recommend to continue current medications, continue with the monitoring, symptomatic treatment. I would recommend continuing the antibiotics at this time. I would also recommend hematology/oncology as well as vascular surgery evaluations. Otherwise, closely follow with Surgery. Two-D echo reviewed. The patient is in normal sinus rhythm. Prognosis guarded. Further recommendations to follow. See orders for further details. Discussed with the family and the patient at length. The patient understands and agrees. A copy of this dictation is being forwarded to Dr. Varma, who is the primary physician. RAMÓN / TI: [id number] /
[2018-12-02 17:09] LABS: Glucose,Whole Blood 169 mg/dL (75-99)
--- NOTE | 2018-12-02 17:26 | P.CON ---
Consult Note - . Consult date: 12/02/18 Assessment/Plan:: Patient is a 71-year-old gentleman was evaluated from a vascular surgical standpoint in reference to aortoiliac occlusive disease. Patient recently is status post spine surgery performed by [facility] for complaints of hip and back discomfort associated with ambulation. Prior to undergoing spine surgery the patient apparently was evaluated by another vascular surgeon who did refer the patient to spine surgery for evaluation and possible intervention. The patient reports a history of hip/gluteal discomfort with ambulation which does resolve with cessation of ambulation. There is no history of ischemic rest pain or nonhealing ulceration. Patient has a history of tobacco use. He did present to the hospital complaining of flank pain beginning 1-2 days prior to his presentation. He denies any previous similar symptoms. He denies chills or fevers. He denies any previous neurologic event. He did apparently undergo carotid duplex proximal a 1 year ago and although I do not have the results of this test he reported no significant problems were identified in this duplex study. Past surgical history significant for appendectomy and recent spine surgery. Social history significant for tobacco use. The patient apparently is greater than [id number] tobacco use history and and did stop smoking 5 years prior. Past medical history significant coronary disease/atrial fibrillation, hypertension and cerebrovascular accident. Laboratory Results WBC 19.3 k/uL (3.8-10.6) H 12/02/18 07:24 RBC 3.80 m/uL (4.30-5.90) L 12/02/18 07:24 Hgb 12.4 gm/dL (13.0-17.5) L 12/02/18 07:24 Hct 38.3 % (39.0-53.0) L 12/02/18 07:24 MCV 100.7 fL (80.0-100.0) H 12/02/18 07:24 MCH 32.7 pg (25.0-35.0) 12/02/18 07:24 MCHC 32.5 g/dL (31.0-37.0) 12/02/18 07:24 RDW 15.2 % (11.5-15.5) 12/02/18 07:24 Plt Count 510 k/uL (150-450) H 12/02/18 07:24 Neutrophils % 90 % 12/02/18 07:24 Lymphocytes % 5 % 12/02/18 07:24 Monocytes % 4 % 12/02/18 07:24 Eosinophils % 0 % 12/02/18 07:24 Basophils % 1 % 12/02/18 07:24 Neutrophils # 17.3 k/uL (1.3-7.7) H 12/02/18 07:24 Lymphocytes # 1.0 k/uL (1.0-4.8) 12/02/18 07:24 Monocytes # 0.7 k/uL (0-1.0) 12/02/18 07:24 Eosinophils # 0.0 k/uL (0-0.7) 12/02/18 07:24 Basophils # 0.1 k/uL (0-0.2) 12/02/18 07:24 Manual Slide Review Performed 12/02/18 07:24 Large Platelets Present 12/02/18 07:24 Hypochromasia Moderate 11/30/18 17:50 Poikilocytosis (manual Present 12/02/18 07:24 Macrocytosis Slight 12/02/18 07:24 PT 10.5 sec (9.0-12.0) 11/30/18 17:50 INR 1.0 (<1.2) 11/30/18 17:50 APTT 23.4 sec (22.0-30.0) 11/30/18 17:50 VBG pH 7.39 (7.31-7.41) 11/30/18 17:50 VBG pCO2 38 mmHg (37-51) 11/30/18 17:50 VBG HCO3 22 mmol/L (24-28) L 11/30/18 17:50 Sodium 133 mmol/L (137-145) L 12/02/18 07:24 Potassium 4.6 mmol/L (3.5-5.1) 12/02/18 07:24 Chloride 103 mmol/L (98-107) 12/02/18 07:24 Carbon Dioxide 20 mmol/L (22-30) L 12/02/18 07:24 Anion Gap 10 mmol/L 12/02/18 07:24 BUN 54 mg/dL (9-20) H 12/02/18 07:24 Creatinine 1.25 mg/dL (0.66-1.25) 12/02/18 07:24 Est GFR (CKD-EPI)AfAm 66 (>60 ml/min/1.73 sqM) 12/02/18 07:24 Est GFR (CKD-EPI)NonAf 57 (>60 ml/min/1.73 sqM) 12/02/18 07:24 Glucose 136 mg/dL (74-99) H 12/02/18 07:24 POC Glucose (mg/dL) 169 mg/dL (75-99) H 12/02/18 17:08 POC Glu Classifications Officer Cc/Cm ID Nanci Viveros 12/02/18 17:08 Lactic Ac Sepsis Rflx Y 11/30/18 18:28 Plasma Lactic Acid Felipe 2.0 mmol/L (0.7-2.0) 11/30/18 22:00 Calcium 7.8 mg/dL (8.4-10.2) L 12/02/18 07:24 Phosphorus 4.2 mg/dL (2.5-4.5) 11/30/18 17:50 Magnesium 3.1 mg/dL (1.6-2.3) H 11/30/18 17:50 Total Bilirubin 0.7 mg/dL (0.2-1.3) 11/30/18 17:50 AST 38 U/L (17-59) 11/30/18 17:50 ALT 38 U/L (21-72) 11/30/18 17:50 Alkaline Phosphatase 113 U/L (38-126) 11/30/18 17:50 Creatine Kinase 23 U/L (55-170) L 11/30/18 17:50 Troponin I <0.012 ng/mL (0.000-0.034) 11/30/18 17:50 NT-Pro-B Natriuret Pep 1090 pg/mL 11/30/18 17:50 Total Protein 4.7 g/dL (6.3-8.2) L 11/30/18 17:50 Albumin 2.3 g/dL (3.5-5.0) L 11/30/18 17:50 Cortisol 41 ug/dL 12/01/18 06:33 Urine Color Yellow 11/30/18 20:32 Urine Appearance Clear (Clear) 11/30/18 20:32 Urine pH 5.5 (5.0-8.0) 11/30/18 20:32 Ur Specific [place] 1.019 (1.001-1.035) 11/30/18 20:32 Urine Protein Trace (Negative) H 11/30/18 20:32 Urine Glucose (UA) Negative (Negative) 11/30/18 20:32 Urine Ketones Negative (Negative) 11/30/18 20:32 Urine Blood Small (Negative) H 11/30/18 20:32 Urine Nitrite Negative (Negative) 11/30/18 20:32 Urine Bilirubin Negative (Negative) 11/30/18 20:32 Urine Urobilinogen <2.0 mg/dL (<2.0) 11/30/18 20:32 Ur Leukocyte Esterase Trace (Negative) H 11/30/18 20:32 Urine RBC 1 /hpf (0-5) 11/30/18 11:34 Urine WBC 1 /hpf (0-5) 11/30/18 20:32 Ur Squamous Epith Cells <1 /hpf (0-4) 11/30/18 11:34 Urine Bacteria Rare /hpf (None) H 11/30/18 11:34 Hyaline Casts 6 /lpf (0-2) H 11/30/18 20:32 Granular Casts 3 /lpf (0) 11/30/18 20:32 Urine Mucus Rare /hpf (None) H 11/30/18 20:32 Blood Type O Positive 11/30/18 17:50 Blood Type Confirm O Positive 11/30/18 19:40 Blood Type Recheck No Previous Record 11/30/18 17:50 Bld Type Recheck Status CABO Indicated 11/30/18 17:50 Antibody Screen NEGATIVE 11/30/18 17:50 Spec Expiration Date 12/03/2018234911/30/18 17:50 Physical examination of the patient afebrile and his vital signs to be stable. He is awake, alert, cooperative and in no apparent distress. Neck was supple and free of adenopathy or bruit. Heart was regular with occasional ectopic beat. Lungs were clear auscultation bilaterally. Abdomen was soft and nontender. No palpable organomegaly was noted. All lower extremity pulses are absent bilaterally. There is no cyanosis or edema. Toes are freely movable and nontender. Review of computed tomography scan demonstrates a large splenic infarct as well as infarct of the right kidney as well as total occlusion of the aorta and bilateral iliac segments. Brachial index is 0.34 in the right and 0.39 on the left. 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 5: Anemia possibly postoperative. 6: Acute kidney injury. Recommendation: I suspect the patient's symptoms of hip and leg pain associated with ambulation or more associated with atherosclerotic vascular disease then [place] skeletal issues however I weight the patient's clinical response to his recent surgery. Should the patient continued to claudicate I would be happy to see the patient in the office for further evaluation. The patient may benefit from aortobifemoral bypass grafting or other procedure to help restore normal arteria l flow to the lower extremities. Thank you for allowing me to participate in the care of your patient. I trust this letter is useful to you.
[2018-12-02 20:34] LABS: Glucose,Whole Blood 202 mg/dL (75-99)
[2018-12-02] MEDS: ATORVASTATIN 10 MG TAB PO SCH (20:53)
[2018-12-02] MEDS: LORATADINE 10 MG TAB PO SCH (20:53)
[2018-12-03 01:56] VITALS: RESP 16
[2018-12-03] MEDS: CHERRY FLAVOR 60 ML BOTTLE PO PRN (05:19)
[2018-12-03] MEDS: AMPICILLIN-SULBACTAM 3 GM in SODIUM CHLORIDE 0.9% 100 ML IVPB SCH (05:20)
[2018-12-03] MEDS: methylPREDNISolone SOD SUCCI 125 MG/2 ML VIAL IV SCH (05:20)
[2018-12-03] MEDS: VANCOMYCIN ORAL SOLUTION 250 MG/5 ML BOTTLE PO SCH (05:20)
[2018-12-03 07:04] LABS: Glucose,Whole Blood 155 mg/dL (75-99)
[2018-12-03 07:26] VITALS: BP 130/72; TEMP 98
[2018-12-03 07:55] LABS: Basophils # (A) 0.1 k/uL (0-0.2); Basophils % (A) 1 %; Eosinophils % (A) 0 %; HCT 35.6 % (39.0-53.0); HGB 11.5 gm/dL (13.0-17.5); Hypochromasia Slight; Lymphocytes # (A) 0.7 k/uL (1.0-4.8); Lymphocytes % (A) 4 %; MCH 32.5 pg (25.0-35.0); MCHC 32.4 g/dL (31.0-37.0); MCV 100.2 fL (80.0-100.0); Macrocytosis Slight; Mean Platelet Volume 7.5; Monocytes # (A) 0.7 k/uL (0-1.0); Monocytes % (A) 4 %; Neutrophils # (A) 14.8 k/uL (1.3-7.7); Neutrophils % (A) 91 %; Platelet Count 576 k/uL (150-450); RBC 3.55 m/uL (4.30-5.90); RDW 14.4 % (11.5-15.5); WBC 16.4 k/uL (3.8-10.6)
[2018-12-03 08:08] LABS: Calcium 7.7 mg/dL (8.4-10.2); Potassium 4.6 mmol/L (3.5-5.1)
[2018-12-03] MEDS: ENOXAPARIN 40 MG/0.4 ML SYRINGE SQ SCH (08:11)
[2018-12-03] MEDS: FORMOTEROL FUMARATE 20 MCG/2 ML NEBU INHALATION SCH (08:11)
[2018-12-03] MEDS: INSULIN ASPART (NovoLOG) 100 UNIT/ML VIAL SQ SCH (08:11)
[2018-12-03] MEDS: PANTOPRAZOLE 40 MG TABLET PO SCH (08:11)
[2018-12-03] MEDS: IPRATROPIUM-ALBUTEROL 3 ML NEB INHALATION SCH ×2 (08:11→11:21)
[2018-12-03] MEDS: BUDESONIDE 1 MG/2 ML NEBU INHALATION SCH (08:11)
[2018-12-03 08:34] VITALS: PULSE 102
[2018-12-03 11:31] LABS: Glucose,Whole Blood 155 mg/dL (75-99)
--- NOTE | 2018-12-03 12:28 | P.PN ---
Progress Note - Text Progress Note Date: 12/03/18 The patient denies any abdominal pain. He states he is going home today. On exam is his vital signs are stable. His abdomen is soft nontender. Resolving abdominal pain. Patient was discharged home per medicine.
--- NOTE | 2018-12-06 07:31 | CDI ---
Documentation Clarification Form Date: 12/06/2018 From: Debbie Bass Phone: If questions call Lesley Reynolds @ [phone], Hours-8:30 am & 5 pm M- F Admit Date: 11/30/2018 7:54:00 PM Patient Name: Roberto Dawson Visit Number: [id number] Discharge Date: 12/03/2018 1:24:00 PM ATTENTION: The Clinical Documentation Specialists (CDI) and [facility] Coding Staff appreciate your assistance in clarifying documentation. Please respond to the clarification below the line at the bottom and electronically sign. The CDI & [facility] Coding staff will review the response and follow-up if needed. Please note: Queries are made part of the Legal Health Record. If you have any questions, please contact the author of this message via ITS. Dr. Jadon Barnett Conflicting documentation has been found in the medical record: Per Dr Carballo consult on 12/02 "suspicions for sepsis". No further documentation of sepsis. History/Risk Factors: bronchial asthma, BRIA, diarrhea Clinical Indicators: Lactic acid sepsis Rflx - Y, Lactic acid 2.1, WBC-20.2, Neutrophils 18.1, BP-81/50, P-102, T-97.7 Treatment: IV fluids, 12/02-IV Unasyn In your opinion, what is the most clinically appropriate diagnosis for this patient? Sepsis-POA Sepsis ruled out Other explanation of clinical findings Unable to determine (no explanation for clinical findings) possible Sepsis-POA MTDD
--- NOTE | 2018-12-09 11:47 | P.ARTDOP ---
Arterial Doppler LOWER EXTREMITY ARTERIAL DOPPLER: DATE OF SERVICE: 12/02/2018 Reason for study: Bilateral leg pain. Doppler waveforms: Atypical at the femoral level bilaterally monophasic below on the right and atypical to the dorsalis pedis on the left. Digital readings are flat line.. Pulse volume recording: []. Pressure gradients: Above the low thigh bilaterally. Ankle-brachial indices: 0.34 on the right and 0.39 on the left. Toe pressures: [] on the right, [] on the left Impression: Severe bilateral iliofemoral occlusive disease. Cannot exclude distal component.
== END 2018-12-03 13:24 | disposition home or self-care (01) | DRG 872 ==
LOC: EC 16:25 → 4SSUR 19:54
PROVIDERS: ADMIT Hospitalist; ATTEND Hospitalist
DX: A41.9 Sepsis, unspecified organism (principal); E87.1 Hypo-osmolality and hyponatremia; J45.901 Unspecified asthma with (acute) exacerbation; N17.9 Acute kidney failure, unspecified; K56.7 Ileus, unspecified; I74.09 Other arterial embolism and thrombosis of abdominal aorta; N28.0 Ischemia and infarction of kidney; K92.1 Melena; J20.9 Acute bronchitis, unspecified; I95.9 Hypotension, unspecified; I72.2 Aneurysm of renal artery; D73.5 Infarction of spleen; E86.0 Dehydration; E86.1 Hypovolemia; I70.229 Atherosclerosis of native arteries of extremities with rest pain, unspecified extremity; D64.9 Anemia, unspecified; E78.5 Hyperlipidemia, unspecified; K21.9 Gastro-esophageal reflux disease without esophagitis; I10 Essential (primary) hypertension; I71.4 Abdominal aortic aneurysm, without rupture; M47.9 Spondylosis, unspecified; R26.9 Unspecified abnormalities of gait and mobility; M54.9 Dorsalgia, unspecified; G89.29 Other chronic pain; F17.210 Nicotine dependence, cigarettes, uncomplicated; H91.90 Unspecified hearing loss, unspecified ear; Z79.899 Other long term (current) drug therapy; Z71.6 Tobacco abuse counseling; Z87.448 Personal history of other diseases of urinary system; Z87.01 Personal history of pneumonia (recurrent); Z90.49 Acquired absence of other specified parts of digestive tract; Z98.890 Other specified postprocedural states; Z98.1 Arthrodesis status; Z86.010 Personal history of colon polyps; Z86.79 Personal history of other diseases of the circulatory system; Z86.73 Personal history of transient ischemic attack (TIA), and cerebral infarction without residual deficits; Z80.6 Family history of leukemia; Z80.49 Family history of malignant neoplasm of other genital organs; Z82.49 Family history of ischemic heart disease and other diseases of the circulatory system
CPT/HCPCS: 36415; 71045; 74022; 74177; 80048; 80053; 81001; 82533; 82550; 82803; 83605; 83735; 83880; 84100; 84484; 85025; 85610; 85730; 86850; 86900; 86901; 93005; 93308; 93923; 93970; 94640; 94760; 96360; 96361; 99285